=== PATIENT | male | born 1985 | race African-American/Black ===

== ENCOUNTER 2022-06-11 14:33 | Emergency (ER) | payer OTHER, SELFPAY ==
[2022-06-11 14:38] VITALS: BP 158/95; PULSE 100; RESP 19; TEMP 36.6; O2SAT 100; BMI 42.3
--- NOTE | 2022-06-11 18:10 | ED.BACK ---
HPI - Back Pain/Injury General Chief Complaint: Back Pain/Injury Stated Complaint: BACK PAIN Time Seen by Provider: 06/11/22 17:28 Source: patient Mode of arrival: ambulatory Limitations: no limitations History of Present Illness HPI Narrative: Patient presents emergency department for evaluation of diffuse lower back pain. Onset about 3-4 days ago. Denies any precipitating injury. Reports a history of similar pain in the past, but has not occurred for a few years. States that the pain will sometimes go away on its own with the use of ibuprofen. However that has not been the case this time around. Previously has needed to come to the emergency department to receive prescription for muscle relaxer and Percocet. He does report that he has trialed physical therapy in the past which only made his symptoms worse, has not had any prior MRI. He was following with a back specialist in approximately 2016 who recommended cortisone injections but he did not have this performed. Denies recent precipitating injury, fevers, chills, burning with micturition, urinary frequency/urgency/hesitancy, bladder or bowel dysfunction, numbness or tingling of the perineum or bilateral legs. Denies any recent surgical procedures, any known immune compromising conditions, personal history of cancer, or IV drug usage. MD elicited complaint: back pain Related Data Previous Rx's Medication Instructions Recorded cyclobenzaprine 10 mg tablet 10 mg PO TID PRN muscle spasm #10 06/11/22 tabs hydrocodone 5 mg-acetaminophen 325 1 tab PO Q8H PRN pain #7 tabs 06/11/22 mg tablet Allergies Allergy/AdvReac Type Severity Reaction Status Date / Time No Known Allergies Allergy Unverified 07/07/20 18:54 [No Known Allergies*] Review of Systems Review of Systems: Constitutional: No weight loss, fever, chills, weakness or fatigue. Skin: No rash or itching. Cardiovascular: No chest pain, chest pressure or chest discomfort. No palpitations or pedal edema. Respiratory: No shortness of breath, cough or sputum production. Gastrointestinal: No anorexia, nausea, vomiting or diarrhea. No abdominal pain or blood in stool. Genitourinary: No burning micturition. No urinary frequency or incontinence. Neurologic: No headache, dizziness, syncope, unilateral weakness, ataxia, numbness or tingling in the extremities. No change in bowel or bladder control. Musculoskeletal: + Back pain as noted in HPI. No joint pain or stiffness. Hematologic: No bleeding or bruising. Lymphatics: No enlarged lymph nodes. Psychiatric:No depression or anxiety. Endocrine: No polyuria or polydipsia. Yes all other systems are reviewed and are negative [facility] Past Medical History Attestation statement: The following information was validated with the patient. Source: old records reviewed Social History Social History Advance Directives: No Advance Directives Information Provided: Yes Physical Exam Vital Signs: Vital Signs: Last Vital Signs Temp 98 F 06/11/22 14:38 Pulse 100 06/11/22 14:38 Resp 19 06/11/22 14:38 BP 158/95 H 06/11/22 14:38 Pulse Ox 100 06/11/22 14:38 O2 Del Method 06/11/22 14:38 BMI result Body Mass Index 42.3 Vital signs have been reviewed as normal and appeared to be correct. Blood pressure normal.? Heart rate normal.? Respiration rate normal. Temperature normal.? Oxygen saturation normal. Appearance: Alert.?Oriented to person, place and time. No acute distress.?Normal affect. Eyes: Pupils equal, round and reactive to light.? ENT: Pharynx normal.?? Neck: Normal inspection.? Neck supple.?? CVS: Heart sounds normal. Normal heart rate and rhythm.? Pulses normal; bilateral radial pulses 2+, bilateral posterior tibial/dorsalis pedis pulses 2+.? Respiratory: No respiratory distress.? Lung sounds clear to auscultation bilaterally?? Abdomen: Soft and non-tender. Skin: Skin warm and dry.? Normal skin color Extremities: No lower extremity edema.? Back: + mild paraspinal muscular tenderness from lumbar region to coccyx. No CVA tenderness. No midline spinal tenderness, step-off's, or deformity. Full ROM intact in bilateral lower extremities. Straight leg test negative on right; Straight leg test negative on left. No rashes, lesions, areas of induration or fluctuance, or signs of infection noted. Course Course Course Narrative: Patient is a 36-year-old male with past medical history of low back pain presents to the emergency department today for 4 days of atraumatic lower back pain. Pain is most consistent with muscular pain, although cannot completely exclude herniated disc. On neurological exam there are no deficits. Not consistent with spinal fracture, spinal infection, epidural abscess, AAA, epidural abscess, or dissection. No high risk past medical history including incontinence, fever, immunosuppression, recent surgery or lumbar puncture, coagulopathy, significant trauma, recent unintentional weight loss, pulsatile mass, history of cancer, history of TB, history of IV drug use that would warrant MRI or CT. Not consistent with pyelonephritis, urinary tract infection, renal calculi, appendicitis, diverticulitis. On exam no concern for cauda equina syndrome. No imaging is currently indicated at this time. Plan for discharge home with new prescription for Flexeril, hydrocodone, discussed worrisome signs and symptoms return back to emergency, and follow-up with primary care provider, and patient agreed with plan. MDM - Back Pain/Injury Medical Records Attestation: I reviewed the patient's medical records. Discharge Plan Discharge Clinical Impression: Lumbar back pain Patient Disposition: Home, Self-Care Instructions: Acute Low Back Pain (ED) Additional Instructions: Be sure to rest, avoid excess activity or heavy lifting. Return to work note provided for tomorrow at your request. You can take ibuprofen 200 mg, 3 tablets (600mg) every 6-8 hours as needed for pain You have additionally been given a prescription for cyclobenzaprine this is a muscle relaxer, it may make you drowsy. You should not drive, operate machinery, or drink alcohol while taking this medication. Should you continue to have pain you may trial hydrocodone after. Please contact your primary care provider and arrange for a follow-up visit. Return to the emergency department any new or worsening symptoms or concerns Prescriptions: New cyclobenzaprine 10 mg tablet 10 mg PO TID PRN (Reason: muscle spasm) Qty: 10 0RF hydrocodone-acetaminophen 5-325 mg tablet 1 tab PO Q8H PRN (Reason: pain) Qty: 7 0RF Rx Instructions: Partial Fill upon patient request. Stand Alone Forms: Work/School Release
== END 2022-06-11 19:13 | disposition home or self-care (01) ==
PROVIDERS: Emergency Provider Emergency Medicine; PCP Internal Medicine
DX: M54.50 Low back pain, unspecified (principal)
CPT/HCPCS: 99281; 99283

== ENCOUNTER 2022-12-06 10:48 | Outpatient (REF) | payer OTHER, SELFPAY ==
[2022-12-06 13:52] LABS: MANUAL DIFF FLAG NO
[2022-12-06 14:02] LABS: Basophils Absolute Auto 0.1 X10*3/uL (0.0-0.2); Basophils Percent Auto 0.8 % (0-2); Eosinophils Absolute Auto 0.2 X10*3/uL (0.0-0.4); Eosinophils Percent Auto 2.1 % (0-4); Hematocrit 47.9 % (42.0-52.0); Hemoglobin 15.9 g/dl (14.0-18.0); Imm Gran Abs Auto 0.02 X10*3/uL (0.00-0.03); Imm Gran Pct Auto 0.2 % (0.0-0.4); Lymphocytes Absolute Auto 2.6 X10*3/uL (1.2-4.9); Lymphocytes Percent Auto 30.1 % (20-40); Mean Corpuscular HGB Conc 33.2 g/dl (31.0-36.0); Mean Corpuscular Hemoglobin 29.6 pg (27.0-33.0); Mean Platelet Volume 9.6 fL (9.4-12.4); Monocytes Absolute Auto 0.8 X10*3/uL (0.1-1.2); Monocytes Percent Auto 9.1 % (2-11); Neutrophils Percent Auto 57.7 % (45-73); Platelet Count 321 X10*3/uL (160-400); Red Blood Count 5.38 X10*6/uL (4.60-5.80); White Blood Count 8.7 X10*3/uL (4.8-10.8)
[2022-12-06 14:18] LABS: Alanine Aminotransferase 55 U/L (0-40); Albumin Level 4.8 g/dL (3.5-5.0); Alkaline Phosphatase 68 U/L (39-117); Anion Gap 16 (12-20); Aspartate Amino Transferase 34 U/L (5-37); Bilirubin Total 0.5 mg/dL (0.0-1.0); Blood Urea Nitrogen 11 mg/dL (9-16); Calcium 9.8 mg/dL (8.4-10.2); Carbon Dioxide 26 mmol/L (22-29); Chloride 105 mmol/L (96-108); Cholesterol 262 mg/dL; Estimated Glomerular Filt Rate > 60; Glucose Fasting 86 mg/dL (60-99); HDL Cholesterol 73 mg/dL; LDL Cholesterol Calculated 166 mg/dl; Potassium 4.3 mmol/L (3.3-5.1); Sodium 143 mmol/L (135-145); Total Protein 7.5 g/dL (6.5-8.0); Triglycerides 117 mg/dL
== END 2022-12-06 10:49 | disposition home or self-care (01) ==
LOC: HO.HMGCLDS 10:48
PROVIDERS: PCP Internal Medicine; Visit Provider Internal Medicine
DX: E66.01 Morbid (severe) obesity due to excess calories (principal); G89.29 Other chronic pain; M54.50 Low back pain, unspecified; R03.0 Elevated blood-pressure reading, without diagnosis of hypertension; Z76.89 Persons encountering health services in other specified circumstances
CPT/HCPCS: 36415; 80053; 80061; 84439; 84443; 85025

== ENCOUNTER 2022-12-20 14:37 | Outpatient (REF) | payer OTHER, SELFPAY ==
--- NOTE | ~2022-12-20 | US_ITS ---
EXAMINATION: US THYROID CLINICAL INFORMATION: Other specified abnormal findings of blood chemistry. COMPARISON: None TECHNIQUE: Linear transducer grayscale and color Doppler examination with attention to the region of the thyroid. FINDINGS: SIZE: Measurements of the thyroid lobes and nodules are given in sagittal, anteroposterior and transverse dimensions respectively. Right Thyroid Lobe: 5.0 x 2.0 x 1.4 cm, volume 7.4 mL. Parenchyma: The gland echotexture is homogeneous. Thyroid vascularity is normal. Left Thyroid Lobe: 5.4 x 2.2 x 1.3 cm, volume 8.2 mL. Parenchyma: The gland echotexture is homogeneous. Thyroid vascularity is normal. Isthmus: 0.42 cm in maximum AP dimension. No focal thyroid nodule is seen. NODES: No lymphadenopathy is seen in the tissue surrounding the thyroid gland. US/US thyroid IMPRESSION: Unremarkable-appearing thyroid without nodules. ACR TI-RADS RECOMMENDATION REFERENCE: Ultrasound-guided fine-needle aspiration, followup ultrasound, no further follow up. * TR1 (0 point) and TR2 (2 points): No FNA or follow up. * TR3 (3 points): FNA if more than or equal to 2.5 cm in maximum dimension, followup ultrasound in 1, 3 and 5 years if 1.5 to 2.4 cm in maximum dimension. * TR4 (4-6 points): FNA if more than or equal to 1.5 cm in maximum dimension, followup ultrasound in 1, 2, 3 and 5 years if 1 to 1.4 cm in maximum dimension. * TR5 (more than or equal to 7 points): FNA if more than or equal to 1 cm in maximum dimension, followup ultrasound every year for 5 years if 0.5 to 0.9 cm in maximum dimension. * TR3, TR4 or TR5 nodules that are below the size threshold for followup receive no follow up.
== END 2022-12-20 14:38 | disposition home or self-care (01) ==
LOC: HO.HMGCX 14:37
PROVIDERS: PCP Internal Medicine; Visit Provider Internal Medicine
DX: R79.89 Other specified abnormal findings of blood chemistry (principal)
CPT/HCPCS: 76536

== ENCOUNTER 2023-05-21 15:08 | Emergency (ER) | payer OTHER, SELFPAY ==
--- NOTE | ~2023-05-21 | XR_ITS ---
EXAMINATION: XR HIP, LEFT CLINICAL INFORMATION: Left hip pain, difficulty walking. COMPARISON: None available. TECHNIQUE: Two views of the left hip. FINDINGS: No fracture. Alignment is anatomic. Hip joint space is maintained. Soft tissues are unremarkable. XR/XR hip LT w PEL1V IMPRESSION: Unremarkable left hip.
[2023-05-21 15:49] VITALS: BP 163/102; PULSE 109; RESP 18; TEMP 36.7; O2SAT 93; BMI 43.1
--- NOTE | 2023-05-21 15:50 | ED.EXTPRO ---
HPI - Extremity Problem General Chief complaint: Extremity Problem Stated complaint: left leg pain Time Seen by Provider: 05/21/23 16:10 Source: patient and RN notes reviewed Mode of arrival: ambulatory Limitations: no limitations History of Present Illness HPI Narrative: This is a 37-year-old male, with a past medical history of chronic back pain, presenting to the emergency department with complaints of left hip pain x2 days. patient denies any recent trauma, heavy lifting, or falls. He states that while he was working around [employer] he suddenly felt left hip pain. He states that the pain has been worsening over the last 2 days. He states that the pain worsens with ambulation and with abduction. No urinary or bowel incontinence or retention. No saddle anesthesia. No other complaints or concerns at this time. MD Complaint: extremity pain Onset (ago): day(s) Radiation: none Relieving factors: nothing Exacerbating factors: nothing Associated symptoms: denies other symptoms Related Data Previous Rx's Medication Instructions Recorded ibuprofen 600 mg tablet 600 mg PO Q6H PRN pain #30 tabs 05/21/23 prednisone 20 mg tablet 40 mg PO DAILY 5 days #10 tabs 05/21/23 Allergies Allergy/AdvReac Type Severity Reaction Status Date / Time No Known Allergies Allergy Verified 12/12/22 14:54 [No Known Allergies*] Review of Systems Review of Systems: Yes all other systems are reviewed and are negative Constitutional: Constitutional: Reports as per [facility] Social History Social History Housing: Apartment Patient Tobacco Use Status: Current everyday Tobacco user Tobacco use type: Cigarette Cigarette Packs Per Day: 0.5 e-Cigarette/Vaping Use: Never Used Advance Directives: No Advance Directives Information Provided: No service: No Current occupational status: employed Cognitive needs: No Hearing needs: No Vision needs: No Physical Exam Vital Signs: Vital Signs: Last Vital Signs Temp 98.0 F 05/21/23 15:49 Pulse 106 H 05/21/23 18:35 Resp 18 05/21/23 18:35 BP 185/104 H 05/21/23 18:35 Pulse Ox 98 05/21/23 18:35 O2 Del Method Room Air 05/21/23 18:35 BMI result Body Mass Index 43.1 Const: General: cooperative, comfortable and no acute distress Orientation/consciousness: patient oriented x3 Limitations: no limitations HEENT: Head: Yes normal to inspection, Yes normocephalic and Yes atraumatic Ears: hearing grossly normal bilaterally General nose exam: Normal external nose present Face and sinus: Yes normal facial exam Mouth: Normal oral and palatal mucosa present, oropharynx normal and moist mucous membranes Throat: Yes posterior oropharynx normal Eyes: General: appearance normal, both eyes and all related structures Eyelids: Yes eyelids normal Conjunctivae: conjunctivae normal Sclerae: sclerae normal Pupils: Equal, round and reactive pupils present EOM: EOMs intact bilaterally Neck: Neck: Yes normal visual inspection, Yes full ROM and Yes no lymphadenopathy Lymphatic: no lymphadenopathy noted Chest: Chest palpation & inspection: normal inspection of the chest Resp: Effort & Inspection: normal respiratory effort and able to speak in complete sentences Auscultation: clear to auscultation bilaterally, no crackles, no rales, no rhonchi and no wheezes Cardio: Rate: regular rate Rhythm: regular rhythm Heart sounds: S1 normal heart sound present and S2 normal heart sound present GI: Other: Abdomen is soft, nontender, nondistended. Inspection: Yes normal to inspection Back/Spine/Pelvis: Other: TTP over the left SI joint and left hip. No overlying erythema, edema, ecchymosis noted. No step off. Ambulatory with steady gait. Skin: General skin exam: no rashes or lesions noted Trauma: no lacerations or abrasions Wounds: no wounds Neuro: General: patient oriented x3 and moves all extremities Cranial nerves: Yes Equal, round and reactive pupils present Extrem: General: Yes normal to inspection Right upper extremity: normal to inspection Left upper extremity: normal to inspection Right lower extremity: normal to inspection Left lower extremity: normal to inspection Course Course Course Narrative: RME - 37 yo obese male presents to the ER for evaluation of nontraumatic 10/10 left hip pain for the last 2 days, progressively worsening. Difficulty walking and sleeping. Also endorses some LBP without LE weakness - has some chronic left anterior thigh numbness. Plan: x-ray hip, treat pain & reassess Reevaluation(s) Reevaluation #1: Pt's symptoms improved significantly after toradol injection. Will d/c pt on steroids, NSAIDs. Advised follow-up with primary care physician regarding this visit. Given return precautions. Patient is stable for discharge. Medications Administered Discontinued Medications Generic Name Dose Route Start Last Admin Trade Name Freq PRN Reason Stop Dose Admin Ketorolac Tromethamine 30 mg 05/21/23 17:05 05/21/23 17:14 Ketorolac Tromethamine 30 Mg/Ml Vial IM 05/21/23 17:06 30 mg ONCE ONE Administration Medical Decision Making Medical Decision Making MDM Narrative: This is a 61-[id number]-[id number]-male presenting to the emergency department for evaluation of left hip pain, atraumatic. symptoms most consistent with MSK related pain. No back pain red flags on history of physical. Presentation not consistent with malignancy, fracture, cauda equina syndrome (no bowel or urinary incontinence/retention, no saddle anesthesia, no distal weakness), pylenophritis (afebrile, no CVAT, no urinary symptoms). On examination, patient with mild TTP over left SI joint and left hip. Pt is ambulatory with steady gait. Patellar reflexes 2+. Mildly hypertensive likely due to pain, will get xrays and medicate with toradol. Differential Diagnosis Differential Diagnoses: The differential diagnosis associated with the presentation includes Hip strain, fracture, dislocation, Back strain, sprain, spasm, sciatica, cauda equina syndrome - unlikely Radiology Impression Discussion of test interpretation with radiology: I have reviewed the radiologist's reading. Radiologist Impression: EXAMINATION: XR HIP, LEFT CLINICAL INFORMATION: Left hip pain, difficulty walking. COMPARISON: None available. TECHNIQUE: Two views of the left hip. FINDINGS: No fracture. Alignment is anatomic. Hip joint space is maintained. Soft tissues are unremarkable. XR/XR hip LT w PEL1V IMPRESSION: Unremarkable left hip. ? Dictated By: Lang Ramirez MD Discharge Plan Discharge Clinical Impression: Left hip pain Patient Disposition: Home, Self-Care Instructions: Hip Pain (ED) Additional Instructions: Your x-rays were unremarkable today. Gentle stretching, heat or ice, taking prescribed medications will help with his symptoms. If any new or worsening symptoms occur, including numbness or tingling to groin, bladder/bowel incontinence, please return for re-evaluation. Follow up with your primary care physician. Prescriptions: New prednisone 20 mg tablet 40 mg PO DAILY 5 Days Qty: 10 0RF ibuprofen 600 mg tablet 600 mg PO Q6H PRN (Reason: pain) Qty: 30 0RF Interventions: ED Discharge Assessment Last Done: 05/21/23 19:16 Discharge Date/Time: 05/21/23 19:16
[2023-05-21] MEDS: Ketorolac Tromethamine 30 MG/ML VIAL IM (17:14)
[2023-05-21 18:35] VITALS: BP 185/104; PULSE 106; RESP 18; O2SAT 98
== END 2023-05-21 19:16 | disposition home or self-care (01) ==
PROVIDERS: Emergency Provider Emergency Medicine; PCP Internal Medicine
DX: M25.552 Pain in left hip (principal); E78.9 Disorder of lipoprotein metabolism, unspecified; E66.01 Morbid (severe) obesity due to excess calories; Z68.41 Body mass index [BMI] 40.0-44.9, adult; F17.210 Nicotine dependence, cigarettes, uncomplicated
CPT/HCPCS: 73502; 96372; 99284; J1885

== ENCOUNTER 2024-02-08 09:26 | Emergency (ER) | payer SELFPAY ==
--- NOTE | ~2024-02-08 | XR_ITS ---
EXAMINATION: XR SHOULDER , LEFT CLINICAL INFORMATION: Pain, no injury. COMPARISON: None available at the time of this dictation. TECHNIQUE: AP external rotation, Grashey, scapular Y, and axillary views of the shoulder. Total of 4 views FINDINGS: BONES: There is no fracture or dislocation, no osteolytic or osteoblastic lesion. JOINTS: Glenohumeral joint is properly positioned. AC joint is unremarkable. SOFT TISSUE AND INCLUDED LUNG: Soft tissue calcification around humeral head suggesting calcific tendinosis. XR/XR shoulder LT min 2V IMPRESSION: 1. Soft tissue calcification around humeral head suggesting calcific tendinosis. 2. No fracture or dislocation.
[2024-02-08 09:40] VITALS: BP 154/98; PULSE 93; RESP 18; TEMP 36.7; O2SAT 97; BMI 42.3
--- NOTE | 2024-02-08 10:00 | ED.EXTPRO ---
HPI - Extremity Problem General Chief complaint: Extremity Injury, Upper Stated complaint: Left arm pain Time Seen by Provider: 02/08/24 09:58 Source: patient Mode of arrival: ambulatory Limitations: no limitations History of Present Illness HPI Narrative: 38 yo m with pmhx of lipid disorder, morbid obesity, LFT elevation presents with left shoulder pain X 2 weeks. Denies trauma to arm, states it has not improved with ibuprofen and was tried of the pain. Reports slight radiation to left side of neck. 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 Pain seems to be worsening by heavy lifting and above the head movments. Denies cp, shortness of breath, chills, fevers, nausea, vomiting, diarrhea, vision changes, fevers, chills, numbness, tingling Related Data Previous Rx's ?Medication ?Instructions ?Recorded ibuprofen 600 mg tablet 600 mg PO Q6H PRN pain #30 tabs 05/21/23 prednisone 20 mg tablet 40 mg (2 x 20 mg) PO DAILY 5 days 05/21/23 #10 tabs ketorolac 10 mg tablet 10 mg PO TID PRN pain 5 days #15 02/08/24 tabs Allergies Allergy/AdvReac Type Severity Reaction Status Date / Time No Known Allergies Allergy Verified 02/08/24 09:43 [No Known Allergies*] Review of Systems Review of Systems: Yes all other systems are reviewed and are negative PMFSH Past Medical History Attestation statement: The following information was validated with the patient. Source: old records reviewed and nursing notes reviewed Social History Social History Housing: Apartment Alcohol intake: current Patient Tobacco Use Status: Current everyday Tobacco user Tobacco use type: Cigarette Cigarette Packs Per Day: 0.5 Smoked in Last 30 Days: Yes e-Cigarette/Vaping Use: Never Used Substance Use Type: Marijuana Advance Directives: No service: No Current occupational status: employed Cognitive needs: No Hearing needs: No Vision needs: No Physical Exam Vital Signs: Vital Signs: Last Vital Signs Temp 98.1 F 02/08/24 10:44 Pulse 93 02/08/24 10:44 Resp 18 02/08/24 10:44 BP 154/98 H 02/08/24 10:44 Pulse Ox 97 02/08/24 10:44 O2 Del Method Room Air 02/08/24 10:44 BMI result Body Mass Index 42.3 vss Appearance: Alert.? Oriented X3.? No acute distress.? Head: Normocephalic, atraumatic, no step-offs or deformities Eyes: Pupils equal, round and reactive to light.? Neck: Normal inspection.? Neck supple.? CVS: Normal heart rate and rhythm.? Pulses normal b/l. Cap refill <2 seconds b/l. Respiratory: No respiratory distress.? Breath sounds normal.? Skin: Skin warm and dry.? Normal skin color.? Normal skin turgor.? Extremities: 5/5 strength to bilateral upper and lower extremities. Tenderness to palpation to l shoulder. Full ROM b/l, pain with ROM on l shoulder worse w/ overhead movements. No wrist drop. Normal sensation distally. 2+ radial pulses equal and b/l. Back: No midline tenderness, no C-spine tenderness, full range of motion. Neuro: Oriented X 3.? No motor deficit.? No sensory deficit. CN 2-12 intact Course Reevaluation(s) Reevaluation #1: X-ray showing soft tissue calcification around humeral head suggesting calcific tendinosis. I did educate patient is at this was the likely diagnosis. Advised him to follow-up with the orthopedic team. He was given Toradol here. Toradol sent to his pharmacy. Educated patient on diagnosis and treatment plan, answered all question, patient verbalizes understanding. At this time patient will be discharged home, advised to return with new or worsening symptoms. Educated on worrisome signs and symptoms and when to return. At this time I feel comfortable discharge home. Time: 11:37 Medications Administered Discontinued Medications Generic Name Dose Route Start Last Admin Trade Name Freq PRN Reason Stop Dose Admin Ketorolac Tromethamine 30 mg 02/08/24 10:07 02/08/24 10:40 Ketorolac Tromethamine 30 Mg/Ml Vial IM 02/08/24 10:08 30 mg ONCE ONE Administration Medical Decision Making Medical Decision Making [facility] Narrative: 38 yo m with pmhx of LFT elevation, lipid disorder presents with left shoulder pain X 2 weeks, came in because he got tired of pain. Denies trauma to area. Denies cp, shortness of breath, nausea, vomiting, diarrhea, fevers. chills, vision changes. PE benign.5/5 strength to bilateral upper and lower extremities. Tenderness to palpation to l shoulder. Full ROM b/l, pain with ROM on l shoulder worse w/ overhead movements. No wrist drop. Normal sensation distally. 2+ radial pulses equal and b/l. Hx and PE likely strain vs sprain vs rotator cuff injury vs bursitis vs tendonitis. Unlikely NV compromise, arterial occlusion, venous occlusion, threat to limb. I do not suspect fx or dislocation. Plan- imaging Differential Diagnosis Differential Diagnoses: The differential diagnosis associated with the presentation includes Hx and PE likely strain vs sprain vs rotator cuff injury vs bursitis vs tendonitis. Unlikely NV compromise, arterial occlusion, venous occlusion, threat to limb. Admission/Observation Consideration of admission/observation: Escalation of care including admission/observation considered unlikely Independent Interpretation I performed an independent interpretation of an: Plain X-Ray (XR/XR shoulder LT min 2V IMPRESSION: 1. Soft tissue calcification around humeral head suggesting calcific tendinosis. 2. No fracture or dislocation.) Radiology Impression Discussion of test interpretation with radiology: I have reviewed the radiologist's reading. Independent Historian Clinical information obtained from an independent historian. History obtained from or confirmed by: Spouse Prescription Management I considered prescription management with: Pain Medication Discharge Plan Discharge Clinical Impression: Left shoulder pain Patient Disposition: Home, Self-Care Instructions: Shoulder Pain (ED) Additional Instructions: Take your medications as prescribed. If you were prescribed antibiotics today, it is important that you take your medication to their entirety, do not skip any doses, do not finish them early. Follow-up with your primary care provider this week. Return to the emergency department with new or worsening symptoms. In case of emergency call 911 Follow up with orthopedic team within 1 week if needed. Prescriptions: New ketorolac 10 mg tablet 10 mg PO TID PRN (Reason: pain) 5 Days Qty: 15 0RF No Action prednisone 20 mg tablet 40 mg PO DAILY 5 Days Qty: 10 0RF ibuprofen 600 mg tablet 600 mg PO Q6H PRN (Reason: pain) Qty: 30 0RF [place] [facility] [place] [facility] [place] Group[place] - 3 days Shaka Stock MD [Primary Care Provider] - 1 week Stand Alone Forms: Work/School Release Interventions: ED Discharge Assessment Last Done: 02/08/24 10:44 Discharge Date/Time: 02/08/24 10:44 Print Language: Albanian
[2024-02-08] MEDS: Ketorolac Tromethamine 30 MG/ML VIAL IM (10:40)
[2024-02-08 10:44] VITALS: BP 154/98; PULSE 93; RESP 18; TEMP 36.7; O2SAT 97
== END 2024-02-08 10:44 | disposition home or self-care (01) ==
PROVIDERS: Emergency Provider Emergency Medicine; PCP Internal Medicine
DX: M25.512 Pain in left shoulder (principal); F17.200 Nicotine dependence, unspecified, uncomplicated
CPT/HCPCS: 73030; 96372; 99284; J1885

== ENCOUNTER 2024-09-19 14:36 | Emergency (ER) | payer SELFPAY ==
--- NOTE | ~2024-09-19 | XR_ITS ---
EXAMINATION: XR LUMBOSACRAL SPINE CLINICAL INFORMATION: Midline lower back pain. COMPARISON: Lumbar spine radiographs dated 04/08/2015. TECHNIQUE: Three views of the lumbosacral spine. FINDINGS: The vertebral bodies and posterior elements are normal. The disc spaces are preserved and the vertebral alignment is normal. The paraspinal soft tissues are normal. XR/XR lumbar spine 2-3V IMPRESSION: Unremarkable examination. Electronically signed by: Randy Nguyen MD 09/19/2024 03:45 PM [facility]
[2024-09-19 14:47] VITALS: BP 169/92; PULSE 102; RESP 20; TEMP 37.6; O2SAT 98; BMI 40.8
--- NOTE | 2024-09-19 14:50 | ED.BACK ---
HPI - Back Pain/Injury General Chief Complaint: Back Pain/Injury Stated Complaint: back pain Time Seen by Provider: 09/19/24 15:22 Source: patient Mode of arrival: ambulatory Limitations: no limitations History of Present Illness ED Provider: Denisa Robertson NP HPI Narrative: Patient is a 39-year-old male who presents emergency department for evaluation of acute on chronic lower back pain. Worsening of symptoms occurred 3 days ago and exacerbates with movement. He denies any known precipitating injury however he does engage in heavy lifting activity while at work. He has tried ibuprofen without any relief in his pain. He states that he has been seen here in this emergency department in the past, has been given prescription for muscle relaxer as well as Percocet and/or Vicodin, this is the only thing that has so far help and has flares of this pain. He has tried physical therapy in the past but he feels that this worsens his pain. He has seen a back specialist quite a few years ago in [place], reports that they recommended cortisone injections but he did not wish to have this performed. He has requested an MRI but could not get 1 approved by the insurance company. He has not followed up with a back specialist in quite some time. Denies recent precipitating injury, fevers, chills, burning with micturition, urinary frequency/urgency/hesitancy, bladder or bowel dysfunction, numbness or tingling of the perineum or bilateral legs. Denies any recent surgical procedures, any known immune compromising conditions, personal history of cancer, or IV drug usage. elicited complaint: back pain Related Data Previous Rx's ?Medication ?Instructions ?Recorded ibuprofen 600 mg tablet 600 mg PO Q6H PRN pain #30 tabs 05/21/23 prednisone 20 mg tablet 40 mg (2 x 20 mg) PO DAILY 5 days 05/21/23 #10 tabs ketorolac 10 mg tablet 10 mg PO TID PRN pain 5 days #15 02/08/24 tabs cyclobenzaprine 10 mg tablet 10 mg PO TID PRN muscle spasm #14 09/19/24 tabs prednisone 20 mg tablet 40 mg (2 x 20 mg) PO DAILY 5 days 09/19/24 #10 tabs Allergies Allergy/AdvReac Type Severity Reaction Status Date / Time No Known Allergies Allergy Verified 09/19/24 14:51 [No Known Allergies*] Review of Systems Review of Systems: Yes all other systems are reviewed and are negative [facility] Past Medical History Attestation statement: The following information was validated with the patient. Source: old records reviewed Social History Social History Housing: Apartment Alcohol intake: current Patient Tobacco Use Status: Current everyday Tobacco user Tobacco use type: Cigarette Cigarette Packs Per Day: 0.5 e-Cigarette/Vaping Use: Never Used Substance Use Type: Marijuana service: No Current occupational status: employed Cognitive needs: No Hearing needs: No Vision needs: No Physical Exam Vital Signs: Vital Signs: Last Vital Signs Temp 99.7 F 09/19/24 14:47 Pulse 102 H 09/19/24 14:47 Resp 20 09/19/24 14:47 BP 169/92 H 09/19/24 14:47 Pulse Ox 98 09/19/24 14:47 O2 Del Method Room Air 09/19/24 14:47 BMI result Body Mass Index 40.8 Appearance: Alert.?Oriented to person, place and time. No acute distress.?Normal affect. Eyes: Pupils equal, round and reactive to light.? ENT: Pharynx normal.?? Neck: Normal inspection.? Neck supple.?? CVS: Heart sounds normal. Normal heart rate and rhythm.? Pulses normal; bilateral radial pulses 2+, bilateral posterior tibial/dorsalis pedis pulses 2+.? Respiratory: No respiratory distress.? Lung sounds clear to auscultation bilaterally?? Abdomen: Soft and non-tender. Normoactive bowel sounds. No pulsatile mass.?? Skin: Skin warm and dry.? Normal skin color.? Normal skin turgor.?? Extremities: No lower extremity edema.? No calf ttp? Back: + moderate paraspinal muscular tenderness from lumbar region to coccyx palpable spasming, tenderness extends to the bilateral upper lateral hip.. No CVA tenderness. No midline spinal tenderness, step-off's, or deformity. Full ROM intact in bilateral lower extremities. Straight leg test negative on right; Straight leg test negative on left. No rashes, lesions, areas of induration or fluctuance, or signs of infection noted., Neuro: Moves all extremities spontaneously. 5/5 strength in hip extension/flexion, abduction, adduction. Sensation to light touch intact bilaterally. Patellar and Achilles reflex 2+ bilaterally. No ataxia, gait normal and steady.. No focal neuro deficits. Course Course Course Narrative: This is a Rapid Medical Examination (RME) performed by Marizol Stewart PA-C in triage. Full HPI, ROS, assessment and treatment plan per primary provider in the Main ED. 39 yo male here w/ acute on chronic low back pain x3 days. worse w/ movement. took motrin around 0600 this morning without relief. states this typically happens when he works for a long period of time. admits to regular heavy lifting at work. no blunt injury or trauma. no hx of spinal surgery or IVDU. denies saddle anesthesia, numbness /tingling / weakness of extremities, bowel or bladder incontinence or retention. + ttp along midline lumbar spine extending to left lumbar paraspinal muscles. sensation intact. Plan: xr, pain control Medical Decision Making Medical Decision Making MDM Narrative: Patient is a 39-year-old male who presents emergency department for evaluation of acute on chronic lower back pain as per HPI, exacerbation over the past 3 days without obvious precipitating injury. On examination he has notable paraspinal muscle tenderness that extends to the lateral upper hip region. XR was obtained and is without acute osseous abnormality, vertebral bodies are normal and disc spaces appear preserved with normal alignment. On neurological exam there are no deficits. No recent fevers, unintentional weight loss, history of IVDA, high-risk past medical history, immunosuppression, recent surgery or lumbar puncture to suggest spinal infection, epidural abscess, malignancy. Not consistent with AAA or dissection. No genitourinary symptoms, afebrile, no CVA tenderness, unlikely urinary tract infection, pyelonephritis, renal colic. No history of nephrolithiasis/ureteral calculi. No exam findings concerning for cauda equina syndrome. Given his ongoing reoccurrence of this lower back pain and no recent follow-up with specialist, I suggested that he reconsider evaluation/2nd opinion, provided with contact information for the spinal specialist associated with our hospital, Dr. Monzon. Plan for discharge home with prescription for cyclobenzaprine and burst therapy of prednisone, and follow-up with primary care provider, and patient agreed with plan. Differential Diagnosis Differential Diagnoses: The differential diagnosis associated with the presentation includes ( see narrative above) Admission/Observation Consideration of admission/observation: Escalation of care including admission/observation considered ( see narrative above) Independent Interpretation I performed an independent interpretation of an: Plain X-Ray (No acute fracture) Radiology Impression Discussion of test interpretation with radiology: I have reviewed the radiologist's reading. Radiologist Impression: XR/XR lumbar spine 2-3V IMPRESSION: Unremarkable examination. Independent Historian Clinical information obtained from an independent historian. History obtained from or confirmed by: Spouse External Record Review External record reviewed: Outpatient record Tests considered The following testing was considered but not selected: See narrative above, no indication for emergent MRI/CT Prescription Management I considered prescription management with: Pain Medication Discharge Plan Discharge Clinical Impression: Lumbago Qualifiers: Chronicity: chronic Back pain laterality: bilateral Sciatica presence: without sciatica Qualified Code(s): M54.50 - Low back pain, unspecified Patient Disposition: Home, Self-Care Instructions: Chronic Back Pain (DC) Additional Instructions: Take prednisone daily for 5 days with food to prevent stomach upset. Prescription for muscle relaxant was sent to your pharmacy. This medication may make you drowsy, you should not drive or drink alcohol, or work while taking this medication. As discussed, given the chronic nature of this reoccurring pain, I suggest that you reconsider follow-up/2nd opinion with a back specialist. I have provided contact information for the back specialist that is associated with our hospital, Dr. Monzon, however you do have the available option to follow-up or seek evaluation wherever you please. You may speak with your insurance provider regarding local specialist that are within network. You may return to emergency department any new or worsening symptoms or concerns. Prescriptions: New prednisone 20 mg tablet 40 mg PO DAILY 5 Days Qty: 10 0RF cyclobenzaprine 10 mg tablet 10 mg PO TID PRN (Reason: muscle spasm) Qty: 14 0RF No Action prednisone 20 mg tablet 40 mg PO DAILY 5 Days Qty: 10 0RF ibuprofen 600 mg tablet 600 mg PO Q6H PRN (Reason: pain) Qty: 30 0RF ketorolac 10 mg tablet 10 mg PO TID PRN (Reason: pain) 5 Days Qty: 15 0RF Referrals: Shaka Stock MD [Primary Care Provider] - Anuel Monzon MD, PhD [Physician] - Print Language: Latvian
[2024-09-19 16:12] VITALS: BP 169/92; PULSE 102; RESP 20; TEMP 37.6; O2SAT 98
== END 2024-09-19 16:13 | disposition home or self-care (01) ==
PROVIDERS: Emergency Provider Emergency Medicine; PCP Internal Medicine
DX: M54.50 Low back pain, unspecified (principal); F17.210 Nicotine dependence, cigarettes, uncomplicated; F12.90 Cannabis use, unspecified, uncomplicated
CPT/HCPCS: 72100; 99282; 99283

== ENCOUNTER 2025-07-15 14:49 | Emergency (ER) | payer MEDICAID, SELFPAY ==
--- NOTE | ~2025-07-15 | XR_ITS ---
EXAMINATION: XR HAND, RIGHT CLINICAL INFORMATION: pain s/p punch COMPARISON: None available. TECHNIQUE: PA, lateral, and oblique views of the right hand. FINDINGS: Diagonally oriented cortical disruption involving the distal diaphysis of the third metacarpal with extension into the metacarpophalangeal joint. There is 2.5 mm gap between the fragments. The phalanges are intact with normal alignment. The carpal bones are intact with normal alignment. Distal radius and ulna are intact. The first, second, fourth and fifth metacarpals are intact. XR/XR hand RT min 3V IMPRESSION: Acute likely intra-articular fracture distal third metacarpal with ulnar deviation. Electronically signed by: Jc Duckworth MD 07/15/2025 03:47 PM EDT
[2025-07-15 15:17] VITALS: BP 234/96; PULSE 114; RESP 18; TEMP 36.8; O2SAT 96; BMI 39.5
--- NOTE | 2025-07-15 15:18 | ED_ITS ---
HPI - Extremity Injury (Upper) General Chief Complaint: Extremity Injury, Upper Stated Complaint: R hand injury Time Seen by Provider: 07/15/25 17:35 Related Data Previous Rx's ?Medication ?Instructions ?Recorded ibuprofen 600 mg tablet 600 mg PO Q6H PRN pain #30 t abs 05/21/23 prednisone 20 mg tablet 40 mg (2 x 20 mg) PO DAILY 5 days 05/21/23 #10 tabs ketorolac 10 mg tablet 10 mg PO TID PRN pain 5 days #15 02/08/24 tabs cyclobenzaprine 10 mg tablet 10 mg PO TID PRN muscle s pasm #14 09/19/24 tabs prednisone 20 mg tablet 40 mg (2 x 20 mg) PO DAILY 5 days 09/19/24 #10 tabs amoxicillin 875 mg-potassium 1 tab PO BID #14 tabs clavulanate 125 mg tablet doxycycline hyclate 100 mg capsule 100 mg PO BID cough 7 days #14 caps 07/15/25 oxycodone 5 mg tablet 5 mg PO Q8H PRN pain #7 tabs 07/15/25 Allergies Allergy/AdvReac Type Severity Reaction Status Date / Time No Known Allergies (No Known Allergy Verified 07/15/25 15:21 Allergies*) [facility] Social History Social History Housing: Apartment Alcohol intake: current Alcohol intake frequency: holidays/special occasions only Patient Tobacco Use Status: Current everyday Tobacco user Tobacco use type: Cigarette Cigarette Packs Per Day: 0.5 Smoked in Last 30 Days: Yes e-Cigarette/Vaping Use: Never Used Substance Use Type: Marijuana Advance Directives: No Advance Directives Information Provided: No Do you have a plan to hurt others: No Plan service: No Current occupational status: employed Cognitive needs: No Hearing needs: No Vision needs: No Physical Exam Vital Signs: Vital Signs: Last Vital Signs Temp 98.1 F 07/15/25 20:12 Pulse 91 07/15/25 20:12 Resp 18 07/15/25 20:12 BP 157/97 H 07/15/25 20:12 Pulse Ox 98 07/15/25 20:12 O2 Del Method Room Air 07/15/25 20:12 BMI result Body Mass Index 39.5 Course Course Course Narrative: This is an RME: Additional HPI, ROS, PE not included below will be deferred to primary provider. RME assessment and note performed by: Monik Adams PA-C This is a 40-year-old male, with no medical problems, who presents emergency department complaints of right hand pain. He states that he punched the corner of a table, states that he was upset. Patient with small laceration likely needing suture repair. Unsure of last tetanus he is right-hand dominant Plan: X-rays Medications Administered Discontinued Medications Generic Name Dose Route Start Last Admin Trade Name Freq PRN Reason Stop Dose Admin Hydrocodone Bitart/Acetaminophen 1 tab 07/15/25 19:43 07/15/25 19:52 Hydrocodone Bit/Acetam 5/325 Tablet PO 07/15/25 19:44 1 tab ONCE ONE Administration Diphtheria/Tetanus/Acell Pertussis 0.5 ml 07/15/25 15:22 07/15/25 18:03 Diphth,Pertus(Acell),Tet Adult 0.5 Ml Syringe IM 07/15/25 15:23 0.5 ml .ONCE ONE Administration Hydromorphone HCl 0.5 mg 07/15/25 18:03 07/15/25 20:27 Hydromorphone Hcl 0.5 Mg/0.5 Ml Syringe IVPUSH 07/15/25 18:04 Not Given ONCE ONE Protocol Ampicillin Sodium/Sulbactam 100 mls @ 200 mls/hr 07/15/25 18:01 07/15/25 19:07 Sodium 3 gm/ Sodium Chloride IV 07/15/25 18:30 Infused ONCE ONE Infusion Doxycycline Hyclate 100 mg/ 250 mls @ 166.67 mls/hr 07/15/25 18:01 07/15/25 19:34 Sodium Chloride IV 07/15/25 19:30 166.67 mls/hr ONCE ONE Administration Sodium Chloride 1,000 mls @ 999 mls/hr 07/15/25 18:15 07/15/25 19:36 Ns IV 07/15/25 19:15 Infused .Q1H1M KELLY Infusion Medical Decision Making Medical Decision Making MDM Narrative: 40 years old status post punching a table suffering a open wound to the dorsum of the right hand near the 3rd MCP area. Swelling to the area. The incident happened yesterday. Patient has pain on movement of the MCP clear swelling to the area. Patient's x-ray of the hand showed a distal 3rd metacarpal fracture. Likely has an open fracture. Orthopedics was consulted. Started patient on antibiotic as per their advice. Does not want to admit patient but wants pa tient to be closely followed up. Patient is to see them tomorrow. Explained to patient potentially he needs surgery. Patient is currently in stable condition. Orthopedics suggested that we put on an ulnar gutter. I placed a splint and will discharge patient home. IV antibiotics given as per the advice of orthopedics. Differential Diagnosis Differential Diagnoses: The differential diagnosis associated with the presentation includes Admission/Observation Consideration of admission/observation: Escalation of care including admission/observation considered Procedures Orthopedic Splinting/Casting right forearm: Side: right Upper Extremity Injury Location: hand Upper Extremity Immobilizer: ulnar gutter Additional Comments: Post splinting neurovascularly intact Discharge Plan Discharge Clinical Impression: Open fracture of hand Patient Disposition: Home, Self-Care Instructions: Hand Fracture (ED) Additional Instructions: You have an open fracture. Please follow-up very closely with orthopedics tomorrow. You will need surgery. Please take your antibiotics. 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 Prescriptions: New doxycycline hyclate 100 mg capsule 100 mg PO BID 7 Days Qty: 14 0RF amoxicillin-pot clavulanate 875-125 mg tablet 1 tab PO BID Qty: 14 0RF oxycodone 5 mg tablet 5 mg PO Q8H PRN (Reason: pain) Qty: 7 0RF Rx Instructions: Partial Fill upon patient request. No Action prednisone 20 mg tablet 40 mg PO DAILY 5 Days Qty: 10 0RF cyclobenzaprine 10 mg tablet 10 mg PO TID PRN (Reason: muscle spasm) Qty: 14 0RF prednisone 20 mg tablet 40 mg PO DAILY 5 Days Qty: 10 0RF ibuprofen 600 mg tablet 600 mg PO Q6H PRN (Reason: pain) Qty: 30 0RF ketorolac 10 mg tablet 10 mg PO TID PRN (Reason: pain) 5 Days Qty: 15 0RF Referrals: Tony De Los Santos MD [Physician, Orthopedics] - 1 day Referral Note: Open fracture knee close follow-up. Stand Alone Forms: Work/School Release Print Language: Sierra Leonean
[2025-07-15] MEDS: Diphth,Pertus(ACell),Tet Adult 0.5 ML SYRINGE IM (18:03)
[2025-07-15 18:39] VITALS: BP 140/87; PULSE 94; RESP 18; O2SAT 98
[2025-07-15] MEDS: HYDROcodone Bit/Acetam 5/325 TABLET 1 TAB PO (19:52)
[2025-07-15 20:12] VITALS: BP 157/97; PULSE 91; RESP 18; TEMP 36.7; O2SAT 98
[2025-07-15 21:20] VITALS: BP 157/97; PULSE 91; RESP 18; TEMP 36.7; O2SAT 98
== END 2025-07-15 21:20 | disposition home or self-care (01) ==
PROVIDERS: Emergency Provider Emergency Medicine Emergency Medical Services; PCP Internal Medicine
DX: S62.91XA Unspecified fracture of right hand, initial encounter for closed fracture (principal); S61.411A Laceration without foreign body of right hand, initial encounter; R11.0 Nausea; F17.210 Nicotine dependence, cigarettes, uncomplicated; X58.XXXA Exposure to other specified factors, initial encounter; Y93.9 Activity, unspecified; Y92.9 Unspecified place or not applicable; Y99.8 Other external cause status; Z23 Encounter for immunization
CPT/HCPCS: 29125; 73130; 90471; 90715; 96361; 96365; 96375; 99284; J0295; J1271

== ENCOUNTER → 2025-07-15 15:22 | Outpatient (BNV) | payer MEDICAID, SELFPAY | PROVIDERS: PCP Internal Medicine; Visit Provider Radiology Diagnostic Radiology | DX: M79.641 Pain in right hand (principal) | CPT/HCPCS: 73130 ==

== ENCOUNTER 2025-07-16 09:48 | Outpatient (REF) | payer SELFPAY ==
--- NOTE | ~2025-07-16 | XR_ITS ---
EXAMINATION: XR HAND, RIGHT CLINICAL INFORMATION: M79.641 - Pain in right hand ; third metacarpal fracture COMPARISON: 10/25/2024. TECHNIQUE: PA, lateral, and oblique views of the right hand. FINDINGS: Redemonstration of an oblique fracture of the distal third metacarpal with mild medial displacement. Alignment of the fracture is stable and unchanged from the prior exam. Fracture line extends intra-articularly into the MCP joint. No gross bridging bony callus or healing at this time. Remainder of the bony structures of the hand appear intact. There is normal alignment. Joint spaces are preserved. There is persistent dorsal soft tissue swelling of the hand. XR/XR hand RT min 3V IMPRESSION: No significant interval change in and oblique intra-articular distal third metacarpal fracture. Electronically signed by: Austin Bee MD 07/16/2025 10:20 AM EDT
== END 2025-07-16 09:49 | disposition home or self-care (01) ==
LOC: HO.HOSX 09:48
PROVIDERS: PCP Internal Medicine
DX: S62.302B Unspecified fracture of third metacarpal bone, right hand, initial encounter for open fracture (principal); Z79.891 Long term (current) use of opiate analgesic; Z79.2 Long term (current) use of antibiotics; X58.XXXA Exposure to other specified factors, initial encounter
CPT/HCPCS: 29125; 73130; 99212

== ENCOUNTER 2025-07-16 09:48 | Outpatient (AMB) | payer MEDICAID, SELFPAY ==
[2025-07-16 10:14] VITALS: BMI 39.5
--- NOTE | 2025-07-16 10:14 | MHC.OFFVIS ---
Vital Signs 07/16/25 10:14 Height 5 ft 7 in Weight 252 lb BMI 39.5 Intake Visit Reasons: ED f/u for R 3rd MC open fx Intake Note: Octavio is a 40 year old right hand dominant male, new patient, who presents today for a Fracture Care Visit status post Right 3rd Metacarpal Fracture, DOI: 07/14/25. Patient reports he punched a table while at home, immediately feeling pain on his knuckle. Today he complains of pain and swelling. He denies numbness or tingling. He denies previous injuries or fractures to the right hand. At [facility] he was prescribed Augmentin, Doxycycline, and Oxycodone but he has not been table to pick this up. Patient is wondering if we could send these to our [facility] pharmacy so they can be picked up while waiting on the billing deparment. Allergies No Known Allergies (No Known Allergies*) Allergy (Verified 07/16/25 10:20) [facility] ED f/u for R 3rd MC open fx: Details: Octavio is a 40 year old right hand dominant male, new patient, who presents today for a Fracture Care Visit status post Right 3rd Metacarpal Fracture, DOI: 07/14/25. Patient reports he punched a table while at home, immediately feeling pain on his knuckle. Today he complains of pain and swelling. He denies numbness or tingling. He denies previous injuries or fractures to the right hand. At [facility] he was prescribed Augmentin, Doxycycline, and Oxycodone but he has not been table to pick this up. Patient is wondering if we could send these to our [facility] pharmacy so they can be picked up while waiting on the billing deparment. [facility] Social History (Updated 07/16/25 @ 10:23 by KISHORE Pino) Housing: Apartment Alcohol intake: current Alcohol intake frequency: a few times a week Patient Tobacco Use Status: Current everyday Tobacco user Tobacco use type: Cigarette Cigarette Packs Per Day: 0.5 e-Cigarette/Vaping Use: Never Used Substance Use Type: Marijuana service: No Current occupational status: employed Current occupation: [employer] Cognitive needs: No Hearing needs: No Vision needs: No Review of Systems Const All systems reviewed & are unremarkable except as noted in HPI and below Physical Exam Vital Signs: BMI result Body Mass Index 39.5 Extrem Other: Patient is alert, oriented, and in no acute distress. Neuro: Normal sensation of the tips of all digits of the right hand at this time Vascular: Cap refill brisk Pain: Right 3rd metacarpal and areas surrounding wound is tender to palpation Skin: Wound noted over the right 3rd metacarpal head, slight ooze of blood noted No evidence of purulence Some slight redness thus around the wound site Psych: Appears grossly normal Affect normal Attitude cooperative Office Procedures Casting/Splints [id number] Splint Application Procedure code (CPT) selection complete Results Reviewed Results Reviewed: X-rays obtained in the office today and independently reviewed by me, Johan Hale PA-C, demonstrate displaced right 3rd metacarpal head fracture with intra-articular split. Assessment & Plan Assessment & Plan (1) Open fracture of third metacarpal bone of right hand: Code(s): S62.302B - Unspecified fracture of third metacarpal bone, right hand, initial encounter for open fracture Category: Medical Plan 1. Open fracture of right 3rd metacarpal head Date of injury 07/14/2025 I educated the patient about the condition. I discussed both operative and nonoperative treatment options. The patient would like to proceed with surgery. The risks and benefits of operative treatment were discussed with the patient and the patient wishes to proceed with surgery. These risks include, but are not limited to, risk of damage to blood vessels, nerves, tendons, infection, recurrence, incomplete relief of preoperative symptoms, persistent pain, possible need for further surgery, and the risks associated with regional blocks and/or anesthesia. Plan is to take the patient to the operating room at some point on 07/19/2025 for the following procedures: 1. Right 3rd metacarpal I and D and ORIF under general anesthesia All of the preoperative paperwork including the consent was discussed today. All of the patient's questions were answered in the clinic today. The patient understands that they will be in contact with our certified surgical tech/first assistant to discuss scheduling their procedure. Patient denies diabetes, blood thinners, asthma, heart issues, lung issues, kidney issues, or current smoking. NPO at midnight on Saturday Continue antibiotics Keep hand and wrist and splint, keep splint clean, dry, intact Orders: Orders XR hand RT min 3V Today M79.641 - Pain in right hand Medications: New doxycycline hyclate dental prophylaxis-take 1 tab 1hr prior to dental exam 100 mg PO BID 14 tabs 0RF 7 days amoxicillin-pot clavulanate 875-125 mg 1 tab PO BID 14 tabs 0RF 7 days Discontinued amoxicillin-pot clavulanate 875-125 mg Discontinued Reason: Ancillary Entered New Order 1 tab PO BID 14 tabs 0RF doxycycline hyclate Discontinued Reason: Ancillary Entered New Order 100 mg PO BID 7 days 14 caps 0RF cough Coding Level of Care Code New Pt Level 4 (26027) Diagnoses Open fracture of third metacarpal bone of right hand S62.302B CPT Codes Splint - CPT: 70847-[id number] Splint Application ([id number])
== END 2025-07-16 11:17 | disposition home or self-care (01) ==
LOC: HO.HOS 09:49
PROVIDERS: PCP Internal Medicine
DX: S62.302B Unspecified fracture of third metacarpal bone, right hand, initial encounter for open fracture (principal)
CPT/HCPCS: 29125; 99204

== ENCOUNTER → 2025-07-16 10:07 | Outpatient (BNV) | payer MEDICAID, SELFPAY | PROVIDERS: PCP Internal Medicine; Visit Provider Radiology Diagnostic Radiology | DX: M79.641 Pain in right hand (principal) | CPT/HCPCS: 73130 ==

== ENCOUNTER 2025-07-19 08:30 | Day surgery (SDC) | payer MEDICAID, SELFPAY ==
--- NOTE | 2025-07-16 12:23 | HO.ANESPROP2 ---
Documented by User: Kathia Parra NP 07/16/25 12:23 HPI - Anesthesia Eval Consult details Narrative: 40yo M for Right 3rd Metacarpal ORIF and I&D [facility] Active Problems Active Problems: All Active Problems LFT elevation (Acute) Lipid disorder (Acute) Low TSH level (Acute) Paresthesia of left leg (Acute) Foot pain, bilateral (Acute) Chronic lumbar pain (Acute) Morbid obesity due to excess calories (Acute) Elevated blood pressure reading (Acute) Establishing care with new doctor, encounter for (Acute) Surgical History Surgical History (Updated 07/19/25 @ 08:40 by Milagro Rust RN) H/O wisdom tooth extraction Social History Social History (Updated 07/16/25 @ 10:23 by KISHORE Pino) Housing: Apartment Alcohol intake: current Alcohol intake frequency: a few times a week Patient Tobacco Use Status: Current everyday Tobacco user Tobacco use type: Cigarette Cigarette Packs Per Day: 0.5 Cigarettes Per Day: 10 e-Cigarette/Vaping Use: Never Used Use of substances other than those prescribed or required for medical reasons: Yes Substance Use Type: Marijuana Substance Use Type Other:: occasionally Are you DNR?: No Advance Directives: No Advance Directives Information Provided: Yes Poor oral hygiene: No service: No Current occupational status: employed Current occupation: [employer] Cognitive needs: No Hearing needs: No Vision needs: No Meds Allergies Allergy/AdvReac Type Severity Reaction Status Date / Time No Known Allergies (No Known Allergy Verified 07/16/25 10:20 Allergies*) Assessment and Plan Assessment Anesthesia Assessment: Chart Reviewed Documented by User: Margarita Gonzalez MD 07/19/25 10:36 PMF Family History Family history of problems with anesthesia: No Surgical History Surgical History (Updated 07/19/25 @ 08:40 by Milagro Rust RN) H/O wisdom tooth extraction History of Problems with Anesthesia: No Social History Social History (Updated 07/16/25 @ 10:23 by KISHORE Pino) Housing: Apartment Alcohol intake: current Alcohol intake frequency: a few times a week Patient Tobacco Use Status: Current everyday Tobacco user Tobacco use type: Cigarette Cigarette Packs Per Day: 0.5 Cigarettes Per Day: 10 e-Cigarette/Vaping Use: Never Used Use of substances other than those prescribed or required for medical reasons: Yes Substance Use Type: Marijuana Substance Use Type Other:: occasionally Are you DNR?: No Advance Directives: No Advance Directives Information Provided: Yes Poor oral hygiene: No service: No Current occupational status: employed Current occupation: [employer] Cognitive needs: No Hearing needs: No Vision needs: No Meds Allergies Allergy/AdvReac Type Severity Reaction Status Date / Time No Known Allergies (No Known Allergy Verified 07/16/25 10:20 Allergies*) Exam Airway Mallampati Class: II TM Dist: >3cm Neck ROM: Full Heart: rrr Lungs: cta Assessment and Plan Assessment Anesthesia Assessment: Anesthesia Plan Discussed Final Anesthetic Review Family History of Problems with Anesthesia: No History of Problems with Anesthesia: No NPO: Yes ASA Class: II Final Preanesthetic Review: No Changes in Pt Med Stat, Meds/Allgs Chart Reviewed and Consent Obtained/Reviewed Patient Risk: Low Procedure Risk: Low Anesthetic Plan Anesthetic Plan: GA Disposition: Standard PACU
[2025-07-19] VITALS (9 sets, daily range): BP systolic 151–187; BP diastolic 93–109; PULSE 88–95; RESP 11–16; TEMP 36.1–36.8; O2SAT 96–98; BMI 39.6
--- NOTE | ~2025-07-19 | FL_ITS ---
EXAMINATION: FL GUIDANCE ONLY HISTORY: ORIF 3rd metacarpal COMPARISON: Comparison is made with the prior examination dated 07/16/2025. TECHNIQUE: Fluoroscopy time: 8.56 seconds. Cumulative Dose: 3.4921 mGy. DAP: 0.2110 Gym2 Images: 12. FINDINGS: Fluoroscopic spot films of the right hand demonstrate internal fixation of the previously seen fracture of the 3rd metacarpal head with 2 K wires. FL/FL guidance in OR IMPRESSION: Fluoroscopy during procedure. Please see procedure report for additional information. Electronically signed by: Tera Crook MD 07/19/2025 01:33 PM EDT
[2025-07-19] MEDS: Lactated Ringers 1,000 ML 100 ML IVCONT (09:15)
--- NOTE | 2025-07-19 10:34 | MHC.SHP ---
Pre-Procedural Eval Section A - 24 Hr Update-Section A only Date of Service: 07/19/25 The patient is an INPATIENT: No Changes since office visit: No Cold of Flu in the past 2 weeks, No New Medical Problems, No Changes in Medication and No Patient answered all questions The patient has been examined within 24 hours of the surgical procedure. The History & Physical has been completed within 30 days and I have reviewed it.: Yes Section B - Complete if H&P > 30 days Chief Complaint: Unspecified fracture of third metacarpal bone, Allergies: Allergies Allergy/AdvReac Type Severity Reaction Status Date / Time No Known Allergies (No Known Allergy Verified 07/16/25 10:20 Allergies*) Plan Diagnosis/Plan: Unchanged I have reviewed the history and physical and performed a pertinent physical examination on my patient. No changes have occurred unless specified. Time Spent With Patient Time: Total time managing care of this patient today ____ minutes.
--- NOTE | 2025-07-19 10:34 | W.PM.OPN ---
Operative Note Operative Note Date of Service: 07/19/25 Narrative: Operative Note Narrative: Preop diagnosis: 1. Open right 3rd Metacarpal head fracture Postop diagnosis: 1. Open right 3rd metacarpal head fracture 2. Right middle finger MCP joint laceration of radial sagittal band 3. Right middle finger open MCP joint Procedure: 1. Right 3rd Metacarpal head fracture open reduction internal fixation 2. I and D of open fracture and open MCP joint 3. Right 3rd MCP joint repair of radial sagittal band Surgeon: Shey Black MD Hand Ironer: None Anesthesia: General Anesthesia Findings: Metacarpal fracture Implants: 0.054 K-wires x2 Tourniquet time: 57 minutes EBL: Minimal Specimen: None Drains: None Complications: None Disposition: Brought to the recovery room in stable condition Plan: Follow-up in 10-14 days for a wound check, postop radiographs and for placement in a short-arm cast or splint Anticipate K-wire removal in 4 weeks based on interval bony healing Educate the patient that full fracture healing anticipated in approximately 8-12 weeks. Indications: The patient is 40 years old with an open right 3rd metacarpal head fracture, intra-articular . The risks and benefits of operative treatment, including but not limited to risk of damage to blood vessels, nerves, tendons, infection, recurrence, delayed or nonunion of fracture, persistent pain or numbness, incomplete resolution of preoperative symptoms, or need for further surgery were discussed with the patient and they wished to proceed with surgery. Procedure: Once consent was obtained patient was brought back to the operating suite and placed in the operating table in a supine position. . Perioperative antibiotics and general anesthesia was administered by the anesthesia team. A tourniquet was applied to the proximal aspect of the right upper extremity and the limb was prepped and draped in a standard surgical fashion. The limb was elevated and exsanguinated with an Esmarch bandage the tourniquet inflated for a total tourniquet time of 57 minutes. The FluoroScan was used during the case to assist with our fracture reduction and placement of all implants. The patient had an open wound over the dorsal aspect of his right 3rd MCP joint. I made a 4 cm longitudinal incision over the dorsal aspect of the right 3rd metacarpal head including the wound centered on the dorsal aspect of the 3rd metacarpal head. I then dissected down to the level of the extensor tendon. The extensor tendon was noted to be intact but displaced slightly ulnarly with a laceration through about 90% of the radial sagittal band and capsule. He does had both an open MCP joint and an open fracture. This was an oblique fracture through the distal radial articular surface of the 3rd metacarpal extending proximally to the ulnar cortex of the shaft. I 1st began with an I&D of the 3rd MCP joint and of the 3rd metacarpal fracture. This was an open fracture. I excised some hematoma from the fracture site using both tenotomy scissors and a small rongeur. A curette was also used. The fractures and copiously irrigated with normal saline using an Angiocath and a 10 mL syringe. This was also used to irrigate out the hematoma from the 3rd MCP joint. The wound was generally clean, and there was no purulence were debris.. An open reduction was performed on the patient's right 3rd metacarpal head fracture, which was intra-articular in extending from the radial articular surface proximally to the ulnar cortex of the shaft. .. I placed a 0.054 K-wire retrograde through the ulnar neck of the 3rd metacarpal extending proximally and radially across the fracture site to the volar radial cortex.. A 2nd 0.054 K-wire was placed similarly through the ulnar neck of the 3rd metacarpal extending across the fracture to the radial volar cortex. I was satisfied with our fracture alignment and placement of both implants. I applied some longitudinal load across the fracture and did not see any displacement of the fracture on fluoroscopic images. Fracture alignment was assessed for both angular and rotational malalignment. Once satisfied with our fracture reduction and implant placement, the K-wires were bent and cut short and pin caps applied. Final fluoroscopic images were then obtained. The wound was again irrigated with normal saline. I then repaired the radial sagittal band using some 4-0 FiberWire. The wounds were copiously irrigated with normal saline. The skin edges were reapproximated using some 5 0 Prolene suture. The wound was infiltrated with some 1% lidocaine with epinephrine for postop pain control. A Sterile dressing and volar sash clamp operator splint extending to the tips of all of the fingers was applied. The patient appears to have tolerated the procedure well and with no complications. All digits were well vascularized at the conclusion of the case.
[2025-07-19] MEDS: oxyCODONE HCl Immed Release 5 MG TABLET PO (13:10)
--- NOTE | 2025-07-19 15:39 | PHA.MEDREC ---
Addendum entered by Ajay Gillespie PharmD 07/19/25 15:47: reviewed Original Note: Pharmacy Consult ? Medication Reconciliation Pharmacy has reviewed the medication reconciliation done by nursing.
== END 2025-07-19 15:04 | disposition home or self-care (01) ==
PROVIDERS: PCP Internal Medicine; Visit Provider Orthopaedic Surgery
PROC: (CPT 26615; principal; 2025-07-19 10:00)
DX: S62.392B Other fracture of third metacarpal bone, right hand, initial encounter for open fracture (principal); S66.312A Strain of extensor muscle, fascia and tendon of right middle finger at wrist and hand level, initial encounter; W22.09XA Striking against other stationary object, initial encounter; Y93.9 Activity, unspecified; Y92.009 Unspecified place in unspecified non-institutional (private) residence as the place of occurrence of the external cause; Y99.9 Unspecified external cause status; F17.210 Nicotine dependence, cigarettes, uncomplicated
CPT/HCPCS: 26615; 26437; 11010; J0131; J0690; J1100; J1596; J2003; J2004; J2250; J2405; J2704; J3010

== ENCOUNTER → 2025-07-19 08:30 | Outpatient (BNV) | payer MEDICAID, SELFPAY | PROVIDERS: PCP Internal Medicine; Visit Provider Orthopaedic Surgery | DX: S62.302B Unspecified fracture of third metacarpal bone, right hand, initial encounter for open fracture (principal); S66.302A Unspecified injury of extensor muscle, fascia and tendon of right middle finger at wrist and hand level, initial encounter | CPT/HCPCS: 11012; 26437; 26615 ==

== ENCOUNTER 2025-07-27 11:03 | Outpatient (AMB) | payer MEDICAID, SELFPAY ==
--- NOTE | 2025-07-27 11:13 | A.OFFVIS_ITS ---
Intake Visit Reasons: PO RT 3rd MC I&D/ORIF 07/19/25 AR Intake Note: Octavio 40 yr old right hand dominant male presents today for his post op visit for his right hand 3rd MC I&D/ ORIF done with Dr. Black on 07/19/25. Dressing removed in office. Allergies No Known Allergies (No Known Allergies*) Allergy (Verified 07/27/25 11:18) HPI HPI PO RT 3rd MC I&D/ORIF 07/19/25 AR: Details: Octavio is a 40 year old right hand dominant man who presents S/P right 3rd metacarpal ORIF, I&D of fracture & MCP joint laceration, and MCP joint radial sagittal band repair, DOS: 07/19/25. He punched a table at home, DOI: 07/14/25. He says he is doing well overall, with some pain as expected. He has been wearing his splint. He works at [employer] and had questions about his RTW timeline. COUNT INCLUDES THE [facility] Surgical History H/O wisdom tooth extraction Social History Housing: Apartment Alcohol intake: current Alcohol intake frequency: a few times a week Patient Tobacco Use Status: Current everyday Tobacco user Tobacco use type: Cigarette Cigarette Packs Per Day: 0.5 Cigarettes Per Day: 10 e-Cigarette/Vaping Use: Never Used Substance Use Type: Marijuana service: No Current occupational status: employed Current occupation: [email or web address] Cognitive needs: No Hearing needs: No Vision needs: No Review of Systems Const All systems reviewed & are unremarkable except as noted in HPI and below Physical Exam Const General: no acute distress and alert Orientation/consciousness: patient oriented x3 Neuro General: patient oriented x3 Extrem Other: The patient was alert oriented and in no acute distress The incision is healing well with no erythema drainage or evidence of infection. He is very stiff at the MCP & PIP joints We worked on gentle ROM exercises of his index & ring fingers, while in his spl int Sensation is intact Cap refill is brisk Psych Appearance: grossly normal Affect: normal affect Attitude: cooperative Assessment & Plan Assessment & Plan (1) Open fracture of third metacarpal bone of right hand: Code(s): S62.302B - Unspecified fracture of third metacarpal bone, right hand, initial encounter for open fracture Category: Medical (2) Laceration of right middle finger: Comment: Radial sagittal bad & MCP joint Code(s): S61.212A - Laceration without foreign body of right middle finger without damage to nail, initial encounter Category: Medical Plan Assessment & Plan: 1. Right 3rd metacarpal head fracture, open 2. Right middle finger MCP joint laceration of radial sagittal band S/P ORIF, I&D x2, & radial sagittal band repair DOS: 07/19/25 DOI: 07/14/25 The patient appears to be doing well post-operatively I educated him about the post-operative course He is here for an early post-op appointment. He was placed back into his post-op splint until his next appointment I explained the signs and symptoms of infection, if the patient develops any new or worsening erythema, drainage, pain, or warmth they should contact the clinic or attend the ED. I discussed activity modifications, he is to lift nothing heavier than a cellphone for the next 5 weeks. 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 He was given a note to remain out of work for the next 4 weeks Follow up next week as scheduled for a wound check & suture removal. X-rays, 3V R hand, OOP. Anticipate placement in finger spica splint, middle ring & small, allowing for PIP joint ROM. Anticipate early OT referral. Anticipate K-wire removal at between 4 and 5 week postop Scribed for Shey Black MD by Finn Madrid, medical office coordinator, on 07/27/25 at 11:20 AM, EST. Orders: Orders XR hand RT min 3V Today M79.641 - Pain in right hand Coding Level of Care Code Global (43444) Diagnoses Open fracture of third metacarpal bone of right hand S62.302B Laceration of right middle finger S61.212A
== END 2025-07-27 11:50 | disposition home or self-care (01) ==
LOC: HO.HOS 11:04
PROVIDERS: PCP Internal Medicine; Visit Provider Orthopaedic Surgery
DX: S62.302B Unspecified fracture of third metacarpal bone, right hand, initial encounter for open fracture (principal); S61.212A Laceration without foreign body of right middle finger without damage to nail, initial encounter
CPT/HCPCS: 99024

== ENCOUNTER → 2025-07-27 11:05 | Outpatient (BNV) | payer MEDICAID, SELFPAY | PROVIDERS: Visit Provider Radiology Diagnostic Radiology | DX: S62.392A Other fracture of third metacarpal bone, right hand, initial encounter for closed fracture (principal) | CPT/HCPCS: 73130 ==

== ENCOUNTER 2025-07-27 11:18 | Outpatient (REF) | payer MEDICAID, SELFPAY ==
--- NOTE | ~2025-07-27 | XR_ITS ---
EXAMINATION: XR HAND, RIGHT CLINICAL INFORMATION: M79.641 - Pain in right hand COMPARISON: 07/16/2025, 07/15/2025. TECHNIQUE: PA, lateral, and oblique views of the right hand. FINDINGS: There has been interval dual K wire fixation of an oblique intra-articular fracture of the distal third metacarpal with mild medial displacement. Alignment of the fracture is near-anatomic and unchanged from prior exams. Fracture lines are still well defined and minimally sclerotic. No gross bony bridging bony callus is evident. Remainder the bony structures of the hand appear intact. There is normal alignment. Joint spaces are preserved. There is mildly improving dorsal soft tissue swelling. XR/XR hand RT min 3V IMPRESSION: Interval dual K wire fixation of the oblique intra-articular fracture of the distal third metacarpal. No change in near-anatomic alignment. Electronically signed by: Austin Bee MD 07/27/2025 11:20 AM EDT
== END 2025-07-27 11:19 | disposition home or self-care (01) ==
LOC: HO.HOSX 11:18
PROVIDERS: Visit Provider Orthopaedic Surgery
DX: Z47.89 Encounter for other orthopedic aftercare (principal); S61.212A Laceration without foreign body of right middle finger without damage to nail, initial encounter; X58.XXXA Exposure to other specified factors, initial encounter
CPT/HCPCS: 73130; 99212

== ENCOUNTER 2025-08-03 08:31 | Outpatient (REF) | payer MEDICAID, SELFPAY ==
--- NOTE | ~2025-08-03 | XR_ITS ---
EXAMINATION: XR HAND, RIGHT CLINICAL INFORMATION: M79.641 - Pain in right hand COMPARISON: July 27, 2025 TECHNIQUE: PA, lateral, and oblique views of the right hand. FINDINGS: K wires remain in place traversing a fracture fragment along the ulnar side of the neck of the third metacarpal extending to the radial articular surface at the head. There is been no change in position of the fragment with wires. Fracture line remains visible XR/XR hand RT min 3V IMPRESSION: Stable intra-articular fracture of third metacarpal head and neck post external fixation. Electronically signed by: Johnathan Mcgovern MD 08/03/2025 05:14 PM EDT
== END 2025-08-03 08:32 | disposition home or self-care (01) ==
LOC: HO.HOSX 08:31
PROVIDERS: Visit Provider Orthopaedic Surgery
DX: S62.392D Other fracture of third metacarpal bone, right hand, subsequent encounter for fracture with routine healing (principal); W26.8XXD Contact with other sharp object(s), not elsewhere classified, subsequent encounter
CPT/HCPCS: 73130; 99212

== ENCOUNTER → 2025-08-03 15:23 | Outpatient (AMB) | payer MEDICAID, SELFPAY ==
--- NOTE | 2025-08-03 15:35 | MHC.OFFVIS ---
Vital Signs 08/03/25 15:40 Height 5 ft 7 in Weight 265 lb BMI 41.5 Intake Visit Reasons: PO RT 3rd MC I&D/ORIF 07/19/25 AR Intake Note: Octavio 40 yr old right hand dominant male who works at [employer], presents today for his P/O visit for his right hand 3rd MC I&D/ORIF from DOS:07/19/[address] Black. DRessing removed in office and xrays updated. States he is doing well. Allergies No Known Allergies (No Known Allergies*) Allergy (Verified 08/03/25 15:38) HPI HPI PO RT 3rd MC I&D/ORIF 07/19/25 AR: Details: Octavio is a 40 year old right hand dominant man who presents S/P right 3rd metacarpal ORIF, I&D of fracture & MCP joint laceration, and MCP joint radial sagittal band repair, DOS: 07/19/25. He punched a table at home, DOI: 07/14/25. He says he is doing well overall, with some pain as expected. He says this has improved somewhat. He works at [employer]. ON LICENSE OF [facility] Surgical History H/O wisdom tooth extraction Social History Housing: Apartment Alcohol intake: current Alcohol intake frequency: a few times a week Patient Tobacco Use Status: Current everyday Tobacco user Tobacco use type: Cigarette Cigarette Packs Per Day: 0.5 Cigarettes Per Day: 10 e-Cigarette/Vaping Use: Never Used Substance Use Type: Marijuana service: No Current occupational status: employed Current occupation: [employer] Cognitive needs: No Hearing needs: No Vision needs: No Review of Systems Const All systems reviewed & are unremarkable except as noted in HPI and below Physical Exam Vital Signs: BMI result Body Mass Index 41.5 Const General: no acute distress and alert Orientation/consciousness: patient oriented x3 Neuro General: patient oriented x3 Extrem Other: The patient was alert oriented and in no acute distress The incision & pin sites are healing well with no erythema drainage or evidence of infection. Sutures removed and Steri-Strips applied Sensation is intact Cap refill is brisk Radiographs: 3 views of the right hand were taken and viewed by me today in clinic. They show a right 3rd metacarpal head fracture with satisfactory fracture alignment and position of both K-wires. Psych Appearance: grossly normal Affect: normal affect Attitude: cooperative Assessment & Plan Assessment & Plan (1) Open fracture of third metacarpal bone of right hand: Code(s): S62.302B - Unspecified fracture of third metacarpal bone, right hand, initial encounter for open fracture Category: Medical (2) Laceration of right middle finger: Comment: Radial sagittal bad & MCP joint Code(s): S61.212A - Laceration without foreign body of right middle finger without damage to nail, initial encounter Category: Medical Plan Assessment & Plan: 1. Right 3rd metacarpal head fracture, open 2. Right middle finger MCP joint laceration of radial sagittal band S/P ORIF, I&D x2, & radial sagittal band repair DOS: 07/19/25 DOI: 07/14/25 The patient appears to be doing well post-operatively I educated him about the post-operative course I discussed being placed in a cast, he would prefer to be placed in a Clamdigger cast instead of a finger spica. He was placed in a clamdigger cast, to be worn for the next 2 weeks I explained the signs and symptoms of infection, if the patient develops any new or worsening erythema, drainage, pain, or warmth they should contact the clinic or attend the ED. I discussed activity modifications, he is to lift nothing heavier than a cellphone for the next 5 weeks. 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 He was given a note to remain out of work for the next 4 weeks Follow up in 2 weeks, with X-rays, 3V R hand, OOP. Anticipate placement in finger spica splint, middle ring & small, allowing for PIP joint ROM. Anticipate early OT referral. Anticipate K-wire removal at between 4 and 5 week postop Scribed for Shey Black MD by Finn Madrid, director medical, on 08/03/25 at 3:40 PM, EST. Orders: Orders XR hand RT min 3V Today M79.641 - Pain in right hand Coding Level of Care Code Global (21758) Diagnoses Open fracture of third metacarpal bone of right hand S62.302B Laceration of right middle finger S61.212A
[2025-08-03 15:40] VITALS: BMI 41.5
== END ==
PROVIDERS: PCP Internal Medicine; Visit Provider Orthopaedic Surgery
DX: S62.302B Unspecified fracture of third metacarpal bone, right hand, initial encounter for open fracture (principal); S61.212A Laceration without foreign body of right middle finger without damage to nail, initial encounter
CPT/HCPCS: 99024

== ENCOUNTER → 2025-08-03 15:26 | Outpatient (BNV) | payer MEDICAID, SELFPAY | PROVIDERS: Visit Provider Radiology Diagnostic Radiology | DX: M79.641 Pain in right hand (principal) | CPT/HCPCS: 73130 ==

== ENCOUNTER 2025-08-11 10:13 | Outpatient (REF) | payer MEDICAID, SELFPAY ==
--- NOTE | ~2025-08-11 | XR_ITS ---
CLINICAL HISTORY: M79.641 - Pain in right hand 3 views right hand Comparison: 08/03/2025 Findings: An oblique fracture involving distal metaphysis and articular margin of the 3rd metacarpal is healing in satisfactory alignment with 2 K-wires traversing the fracture site. No significant arthritic change No erosions No radiopaque foreign body Impression: Healing 3rd metacarpal ORIF in satisfactory alignment, unchanged in appearance from the previous exam This document has been electronically signed by: Rupert Carey MD on 08/12/2025 18:18:49
== END 2025-08-11 10:14 | disposition home or self-care (01) ==
LOC: HO.HOSX 10:13
PROVIDERS: Visit Provider Orthopaedic Surgery
DX: S62.392D Other fracture of third metacarpal bone, right hand, subsequent encounter for fracture with routine healing (principal); F17.210 Nicotine dependence, cigarettes, uncomplicated; X58.XXXD Exposure to other specified factors, subsequent encounter
CPT/HCPCS: 73130; 99212

== ENCOUNTER 2025-08-11 10:13 | Outpatient (AMB) | payer MEDICAID, SELFPAY ==
[2025-08-11 10:21] VITALS: BMI 41.5
--- NOTE | 2025-08-11 10:21 | MHC.OFFVIS ---
Vital Signs 08/11/25 10:21 Height 5 ft 7 in Weight 265 lb BMI 41.5 Intake Visit Reasons: PO RT 3rd MC I&D/ORIF 07/19/25 AR-cast change Intake Note: Octavio 40 yr old right hand dominant male who works at [employer], presents today for a cast change for his right hand 3rd MC I&D/ORIF from DOS:07/19/[address] Black. States he was having increase pain and states some of his padding fell out. Reports he removed his cast with very strong scissors at home and feels better with out cast on. Allergies No Known Allergies (No Known Allergies*) Allergy (Verified 08/11/25 10:23) HPI HPI PO RT 3rd MC I&D/ORIF 07/19/25 AR-cast change: Details: Octavio is a 40 year old right hand dominant man who returns S/P right 3rd metacarpal ORIF, I&D of fracture & MCP joint laceration, and MCP joint radial sagittal band repair, DOS: 07/19/25. He punched a table at home, DOI: 07/14/25. He says he was having increased pain with his cast on, and he was feeling sweaty & worried about his cast getting wet. He removed this at home with a pair of scissors last night. He feels better now that he removed it. He works at [employer]. He is a smoker. 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 The fracture was only minimally tender to palpation. Sensation is intact Cap refill is brisk Radiographs: 3 views of the right hand were taken and viewed by me today in clinic. They show a right 3rd metacarpal head fracture with satisfactory fracture alignment and position of both K-wires. Psych Appearance: grossly normal Affect: normal affect Attitude: cooperative Assessment & Plan Assessment & Plan (1) Open fracture of third metacarpal bone of right hand: Code(s): S62.302B - Unspecified fracture of third metacarpal bone, right hand, initial encounter for open fracture Category: Medical (2) Laceration of right middle finger: Comment: Radial sagittal bad & MCP joint Code(s): S61.212A - Laceration without foreign body of right middle finger without damage to nail, initial encounter Category: Medical Plan Assessment & Plan: 1. Right 3rd metacarpal head fracture, open 2. Right middle finger MCP joint laceration of radial sagittal band S/P ORIF, I&D x2, & radial sagittal band repair DOS: 07/19/25 DOI: 07/14/25 He removed his cast himself at home, and presents today for a cast change. The patient appears to be doing well post-operatively I educated him about the post-operative course He was fitted for a custom fiberglass splint, to be worn like a cast for the next week I explained the signs and symptoms of infection, if the patient develops any new or worsening erythema, drainage, pain, or warmth they should contact the clinic or attend the ED. I discussed activity modifications, he is to lift nothing heavier than a cellphone for the next 4 weeks. They should also avoid any heavy impact activities, falls, or sports activities for the next 6-8 weeks He will perform gentle ROM exercises at home while in his splint He should avoid any underwater activities at this time I explained the effects of smoking on wound/bone healing, and recommend they stop smoking prior to surgery & while healing. This includes vaping, Marijuana, and other Nicotine products including patches used to help quit. They expressed understanding. OT ordered to begin next week after K-wire removal He works at [employer] and does heavy lifting. He was given a note to remain out of work for the next 3 weeks. We anticipate that he will return to work on light duty, with a 2lb weight limit on 08/31/25. Anticipate return to full duty on 09/13/25 Follow up next week as scheduled next week, with X-rays, 3V R hand, OOP. Anticipate K-wire removal, meri taping and beginning range of motion exercises with OT. Scribed for Shey Black MD by Finn Madrid, medical anthropology director, on 08/11/25 at 11:05 AM, EST. Orders: Orders XR hand RT min 3V Today M79.641 - Pain in right hand OT Evaluation and Treatment Today S61.212A - Laceration without foreign body of right middle finger without damage to nail, initial encounter, S62.302B - Unspecified fracture of third metacarpal bone, right hand, initial encounter for open fracture Coding Level of Care Code Global (92876) Diagnoses Open fracture of third metacarpal bone of right hand S62.302B Laceration of right middle finger S61.212A
== END 2025-08-11 11:48 | disposition home or self-care (01) ==
LOC: HO.HOS 10:13
PROVIDERS: Visit Provider Orthopaedic Surgery
DX: S62.302B Unspecified fracture of third metacarpal bone, right hand, initial encounter for open fracture (principal); S61.212A Laceration without foreign body of right middle finger without damage to nail, initial encounter
CPT/HCPCS: 99024

== ENCOUNTER → 2025-08-11 10:37 | Outpatient (BNV) | payer MEDICAID, SELFPAY | PROVIDERS: Visit Provider Radiology Diagnostic Radiology | DX: M79.641 Pain in right hand (principal) | CPT/HCPCS: 73130 ==

== ENCOUNTER 2025-08-17 08:59 | Outpatient (REF) | payer MEDICAID, SELFPAY ==
--- NOTE | ~2025-08-17 | XR_ITS ---
EXAMINATION: XR HAND 3 OR MORE VIEWS RIGHT HISTORY: M79.641 - Pain in right hand COMPARISON: David is made with the prior examination dated 08/11/2025. FINDINGS: Three views of the right hand are submitted. Osseous mineralization is normal. Again seen is internal fixation of a fracture of the 3rd metacarpal with 2 K wires. Fracture line remains visible. The joint spaces are preserved. The soft tissues are unremarkable. XR/XR hand RT min 3V IMPRESSION: Internal fixation of a fracture of the 3rd metacarpal without change. Electronically signed by: Tera Crook MD 08/17/2025 09:24 AM EDT
== END 2025-08-17 09:00 | disposition home or self-care (01) ==
LOC: HO.HOSX 08:59
PROVIDERS: Visit Provider Orthopaedic Surgery
DX: S62.302D Unspecified fracture of third metacarpal bone, right hand, subsequent encounter for fracture with routine healing (principal); X58.XXXD Exposure to other specified factors, subsequent encounter
CPT/HCPCS: 73130; 99212

== ENCOUNTER 2025-08-17 09:08 | Outpatient (AMB) | payer MEDICAID, SELFPAY ==
[2025-08-17 09:27] VITALS: BMI 41.5
--- NOTE | 2025-08-17 09:27 | A.OFFVIS_ITS ---
Vital Signs 08/17/25 09:27 Height 5 ft 7 in Weight 265 lb BMI 41.5 Intake Visit Reasons: PO RT 3rd MC I&D/ORIF 07/19/25 AR Intake Note: Octavio 40 yr old right hand dominant male who works at [employer], presents today with his [employer], for his P/O visit for his right hand 3rd MC I&D/ORIF from DOS:07/19/[address] Black. At his last visit he was placed in a hydroelectric mechanic cast, he is aware to keep cast clean and dry and anticipation for removal of K-wires. He works at [employer] and does heavy lifting. He was given a note to remain out of work for the next 4 weeks. Splint removed in office and xrays updated in office. States his pain is currently a 12/28. Allergies No Known Allergies (No Known Allergies*) Allergy (Verified 08/11/25 10:23) HPI HPI PO RT 3rd MC I&D/ORIF 07/19/25 AR: Details: Octavio is a 40 year old right hand dominant man who returns S/P right 3rd metacarpal ORIF, I&D of fracture & MCP joint laceration, and MCP joint radial sagittal band repair, DOS: 07/19/25. He punched a table at home, DOI: 07/14/25. He was seen for a cast change on 08/11/25 after removing his at home. he felt increased pain and was worried the cast was getting sweaty. He says he is doing well, but is nervous about having his pins removed today He works at [employer]. He is a smoker. 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 K-wires removed today in clinic, which he tolerated well The fracture was only minimally tender to palpation. Sensation is intact Cap refill is brisk Radiographs: 3 views of the right hand were taken and viewed by me today in clinic. They show a right 3rd metacarpal head fracture with satisfactory fracture alignment and position of both K-wires. Some evidence of interval bony healing. Psych Appearance: grossly normal Affect: normal affect Attitude: cooperative Assessment & Plan Assessment & Plan (1) Open fracture of third metacarpal bone of right hand: Code(s): S62.302B - Unspecified fracture of third metacarpal bone, right hand, initial encounter for open fracture Category: Medical (2) Laceration of right middle finger: Comment: Radial sagittal bad & MCP joint Code(s): S61.212A - Laceration without foreign body of right middle finger without damage to nail, initial encounter Category: Medical Plan Assessment & Plan: 1. Right 3rd metacarpal head fracture, open 2. Right middle finger MCP joint laceration of radial sagittal band S/P ORIF, I&D x2, & radial sagittal band repair DOS: 07/19/25 DOI: 07/14/25 K-wires removed: 08/17/25 The patient appears to be doing well post-operatively I educated him about the post-operative course His middle & ring fingers were Omid-taped, to be worn for the next 3 weeks I explained the signs and symptoms of infection, if the patient develops any new or worsening erythema, drainage, pain, or warmth they should contact the clinic or attend the ED. I discussed activity modifications, he is to lift nothing heavier than a cellphone for the next 3 weeks. They should also avoid any heavy impact activities, falls, or sports activities for the next 5-7 weeks He will perform gentle ROM exercises at home. He is scheduled to begin OT hand therapy tomorrow, 08/18/25 He should avoid any underwater activities for the next 5 days I explained the effects of smoking on wound/bone healing, and recommend they stop smoking prior to surgery & while healing. This includes vaping, Marijuana, and other Nicotine products including patches used to help quit. They expressed understanding. He works at [employer] and does heavy lifting. He is currently out of work and is planned to return to work on light duty, with a 2lb weight limit on 08/31/25. Anticipate return to full duty on 09/13/25 Follow up 3 weeks for a ROM check, with X-rays, 3V R hand, OOP Scribed for Shey Black MD by Finn Madrid, medical office worker, on 08/17/25 at 10:10 AM, EST. Orders: Orders XR hand RT min 3V Today M79.641 - Pain in right hand Coding Level of Care Code Global (79187) Diagnoses Open fracture of third metacarpal bone of right hand S62.302B Laceration of right middle finger S61.212A
== END 2025-08-17 10:41 | disposition home or self-care (01) ==
LOC: HO.HOS 09:08
PROVIDERS: Visit Provider Orthopaedic Surgery
DX: S62.302B Unspecified fracture of third metacarpal bone, right hand, initial encounter for open fracture (principal); S61.212A Laceration without foreign body of right middle finger without damage to nail, initial encounter
CPT/HCPCS: 99024

== ENCOUNTER → 2025-08-17 09:12 | Outpatient (BNV) | payer MEDICAID, SELFPAY | PROVIDERS: Visit Provider Radiology Diagnostic Radiology | DX: S62.302D Unspecified fracture of third metacarpal bone, right hand, subsequent encounter for fracture with routine healing (principal) | CPT/HCPCS: 73130 ==

== ENCOUNTER 2025-09-08 10:24 | Outpatient (AMB) | payer MEDICAID, SELFPAY ==
[2025-09-08 10:58] VITALS: BMI 40.9
--- NOTE | 2025-09-08 10:58 | A.OFFVIS_ITS ---
Vital Signs 09/08/25 10:58 Height 5 ft 7 in Weight 261 lb BMI 40.9 Intake Visit Reasons: PO RT 3rd MC I&D/ORIF 07/19/25 AR w/xray ROM Intake Note: Octavio 40 yr old right hand dominant male who works at [employer], presents today with his [employer], for his P/O visit for his right hand 3rd MC I&D/ORIF from DOS:07/19/[address] Black. At his last visit with Dr Black, his middle & ring fingers were Omid-taped, to be worn for the next 3 weeks and attend O.T to help to regain ROM. Today patient states that while at O.T 2 weeks ago, he felt his hand flared up . He felt tightness, felt a pop and then states he has bruising to the area. Currently he is still limited on making a fist, has swelling on his fingers and is also having wrist pain. Allergies No Known Allergies (No Known Allergies*) Allergy (Verified 09/08/25 11:01) HPI HPI PO RT 3rd MC I&D/ORIF 07/19/25 AR w/xray ROM: Details: Octavio is a 40 year old right hand dominant man who returns S/P right 3rd metacarpal ORIF, I&D of fracture & MCP joint laceration, and MCP joint radial sagittal band repair, DOS: 07/19/25. He reports his middle & ring fingers were Omid-taped, to be worn for the next 3 weeks and attend O.T to help to regain ROM. He states that while at O.T 2 weeks ago, he felt his hand flared up . He felt tightness, felt a pop and then states he has bruising to the area. He says OT had him back off on his exercises until he saw me to make sure nothing was wrong. Currently he is still limited on making a fist, has swelling on his fingers and is also having wrist pain. He works at [employer]. He is a smoker. [facility] Surgical History H/O wisdom tooth extraction Social History Housing: Apartment Alcohol intake: current Alcohol intake frequency: a few times a week Patient Tobacco Use Status: Current everyday Tobacco user Tobacco use type: Cigarette Cigarette Packs Per Day: 0.5 Cigarettes Per Day: 10 e-Cigarette/Vaping Use: Never Used Substance Use Type: Marijuana service: No Current occupational status: employed Current occupation: [employer] Cognitive needs: No Hearing needs: No Vision needs: No Review of Systems Const All systems reviewed & are unremarkable except as noted in HPI and below Physical Exam Vital Signs: BMI result Body Mass Index 40.9 Const General: no acute distress and alert Orientation/consciousness: patient oriented x3 Neuro General: patient oriented x3 Extrem Other: The patient was alert oriented and in no acute distress Incisions are all well healed with no evidence of infection He still has quite a bit of right hand stiffness. He has stiffness in the index ring and small finger MCP joints, and quite a bit more stiffness in the middle finger MCP joint likely secondary to adhesions. We worked on active and passive range of motion exercises for more than 15 minutes in clinic today. We were able to get his index ring and small finger MCP joints to approximately 85 degrees of flexion passively. The middle finger MCP joint is really only flexing to maybe 45 or 50 degrees of flexion and I was able to maybe increase it from 45-50 degrees. He also has extrinsic tightness so he can bring the fingertips of the index middle and ring fingers to maybe 1-2 cm from his palm. Passively I can get them to about 1 cm but actively probably only about 2 cm from his palm. He also has some mild stiffness when trying to bring them into extension but he can just about get his hand flat on the table after working on it in clinic. He could actively bring all of his fingers to probably within 10 degrees from full extension so I am not worried about any kind of extensor tendon problems. He can also hold him against resistance Also some general tightness even with active abduction and adduction Sensation is intact Cap refill is brisk Radiographs: 3 views of the right hand were taken and viewed by me today in clinic. They show a right 3rd metacarpal head fracture that is now well healed and then satisfactory alignment.. Psych Appearance: grossly normal Affect: normal affect Attitude: cooperative Office Procedures AMB Fracture Care Details: No fracture, manual therapy if more than 15 minutes [id number] Fracture Billing Code: Fracture Billing Code Assessment & Plan Assessment & Plan (1) Open fracture of third metacarpal bone of right hand: Code(s): S62.302B - Unspecified fracture of third metacarpal bone, right hand, initial encounter for open fracture Category: Medical (2) Laceration of right middle finger: Comment: Radial sagittal bad & MCP joint Code(s): S61.212A - Laceration without foreign body of right middle finger without damage to nail, initial encounter Category: Medical Plan 1. Right 3rd metacarpal head fracture, open 2. Right middle finger MCP joint laceration of radial sagittal band S/P ORIF, I&D x2, & radial sagittal band repair DOS: 07/19/25 DOI: 07/14/25 K-wires removed: 08/17/25 These have all gone on to heal well 3. Right hand stiffness This is now his main problem The patient appears to have healed well postoperatively, but he still has quite a bit of hand stiffness. I think this flare-up may have been release of some adhesions around the 3rd MCP joint. Again the fracture is well healed now and he is not going to hurt the bone by working on range of motion.. I educated him about the post-operative course I want him to go ahead and start working with enthusiasm and with OT on these range of motion exercises, both active and passive. He will perform gentle ROM exercises at home every hour while awake. He will also need to work on some strengthening in flexion as he gets closer to making a tight fist. 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 I am going to keep him out of work for the next 4 weeks while he works on range of motion Follow up 4 weeks for a ROM check. No radiographs are necessary at this time I am hoping that we can get him back to work in some capacity at next visit. Scribed for Shey Black MD by Jenni Curiel medical staff assistant, on 09/08/25 at 11:48 AM, EST. Orders: Orders XR hand RT min 3V Today M79.641 - Pain in right hand Coding Level of Care Code Est Pt Level 4 (49085) Diagnoses Open fracture of third metacarpal bone of right hand S62.302B Laceration of right middle finger S61.212A CPT Codes Fracture Care - Fracture Billing Code: Fracture Billing Code ([id number])
== END 2025-09-08 11:48 | disposition home or self-care (01) ==
LOC: HO.HOS 10:25
PROVIDERS: Visit Provider Orthopaedic Surgery
DX: S62.302B Unspecified fracture of third metacarpal bone, right hand, initial encounter for open fracture (principal); S61.212A Laceration without foreign body of right middle finger without damage to nail, initial encounter; M25.641 Stiffness of right hand, not elsewhere classified
CPT/HCPCS: 99024

== ENCOUNTER → 2025-09-08 10:27 | Outpatient (BNV) | payer MEDICAID, SELFPAY | PROVIDERS: Visit Provider Radiology Diagnostic Radiology | DX: M79.641 Pain in right hand (principal) | CPT/HCPCS: 73130 ==

== ENCOUNTER 2025-09-08 10:45 | Outpatient (REF) | payer MEDICAID, SELFPAY ==
--- NOTE | ~2025-09-08 | XR_ITS ---
EXAMINATION: XR HAND 3 OR MORE VIEWS RIGHT HISTORY: M79.641 - Pain in right hand COMPARISON: Comparison is made with the prior examination dated 08/17/2025. FINDINGS: Three views of the right hand are submitted. The bones are osteopenic. There has been removal of the previously seen K wires transfixing the previously described fracture of the 3rd metacarpal. Fracture appears healed. The joint spaces are preserved. The soft tissues are unremarkable. XR/XR hand RT min 3V IMPRESSION: Healed fracture of the 3rd metacarpal. Electronically signed by: Tera Crook MD 09/08/2025 11:16 AM EST
== END 2025-09-08 10:46 | disposition home or self-care (01) ==
LOC: HO.HOSX 10:45
PROVIDERS: Visit Provider Orthopaedic Surgery
DX: S62.302B Unspecified fracture of third metacarpal bone, right hand, initial encounter for open fracture (principal); Z98.890 Other specified postprocedural states; X58.XXXD Exposure to other specified factors, subsequent encounter
CPT/HCPCS: 73130; 97140; 99212

== ENCOUNTER 2025-09-13 14:29 | Outpatient (RCR) | payer MEDICAID, SELFPAY ==
--- NOTE | 2025-08-20 08:30 | MHC.OT.EP ---
[facility] Office [address] [facility] [phone] F: [phone] F: [phone] Occupational Therapy Plan of Care Patient Name: Octavio Pringle Date of Evaluation: 08/18/25 Diagnosis: S/P 3rd MCP CRPP, I & D OF FRACTURE, MCP JOINT LACERATION, MCP JOINT RADIAL SAGITTAL BAND REPAIR Pain Location: R MF DORSAL MCP 2/10 AT REST 5/10 WITH USE STIFF, ACHY, THROBBING Pain Score: 2-5/10 Pain Scale Used: Numeric (0 - 10) Aggravating Factors: GENERAL USE OF R HAND Alleviating Factors: NOT USING HEAT/ICE, NOT TAKING PAIN MEDICATION Assessment: MR PRINGLE IS FOUR WEEKS S/P S/P 3rd MCP CRPP, I&D OF FRACTURE, MCP JOINT LACERATION, MCP JOINT RADIAL SAGITTAL BAND REPAIR WITH DR RAHMAN (DOS 07/19/25). HE HAD HIS F/U APPOINTMENT YESTERDAY WITH DR RAHMAN IN WHICH THE PINS WERE REMOVED AND HE HAS A 2 LB LIFTING RESTRICTION. 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 MOST ADLs AND IADLs ARE DIFFICULT FOR HIM TO PERFORM WITH HIS DOMINANT R HAND, NOW USING COMPENSATORY STRATEGIES WITH PRIMARILY HIS L HAND. AN 89% LIMITATION IS REPORTED PER THE QUICK DASH ASSESSMENT. ONGOING SKILLED OT WILL BE WARRANTED TO ADDRESS ROM, SCAR MOBILIZATION, COORDINATION, EDEMA, STRENGTH, ORTHOSIS NEEDS, IADL RETRAINING AND Pt EDUCATION. Frequency and Duration: The patient will be seen 2-3X/WEEK FOR 8 WEEKS Short Term Goals: IND HEP IND USE OF HEAT/ ICE MODALITIES IND MAYA TAPING AND/ OR ORTHOSIS USE ACHIEVE <2 CM TIP TO DPC INCORPORATE RUE INTO DAILY ADLs >75% OF TIME WITH <3/10 PAIN Greenkeeper Goals: IND SCAR MOBILIZATION AND EDEMA MANAGEMENT STRATEGIES ACHIEVE <15/60 OF MP AROM OF 3RD DIGIT R GROSS GRASP >60 POUNDS TOLERATE LIFTING >20 POUNDS FLOOR TO WAIST WITH <3/10 PAIN Treatment Plan: Therapeutic Exercise Therapeutic Activity Home Exercise Program Splinting Neuro Re-ed Patient Education Desensitization/Sensory Re-ed Edema Control ADL Training Ultrasound NMES Iontophoresis Paraffin Fluidotherapy MHP Cold Packs Joint Mobilization Soft Tissue Mobilization Kinesiotaping Other (see comments) Electronically Signed By: RAIMUNDO CABA OTR/L Please Sign and return to therapist. Thank you once again for your referral.
--- NOTE | 2025-09-09 15:43 | MHC.OT.OP ---
[facility] Office [address] [facility] [phone] F: [phone] F: [phone] Occupational Therapy Progress Note Patient Name: Octavio Pringle Diagnosis: S/P 3rd MCP CRPP, I & D OF FRACTURE, MCP JOINT LACERATION, MCP JOINT RADIAL SAGITTAL BAND REPAIR Date of Surgery: 07/19/25 Date of Evaluation: 08/18/25 Treatments to Date: 8 Cancellations to Date: 0 No Shows to Date: 0 Subjective: Pt had a follow up w/ the MD yesterday who cleared him for increased ROM therex and ROM exercises Pain Score: 7 Pain Location: R MF Objective Measures: INTACT PER SEMMES AKANKSHA Status: Progressing Assessment: PT IS 7 WEEKS POST OP; HE HAD A FOLLOW UP W/ THE MD YESTERDAY WHO CLEARED HIM FOR INCREASED ROM AND PROM. PT HAS BEEN COMPLIANT W/ ATTENDING OT AND HIS HEP. 3 TREATMENTS AGO HE REPORTED A PAINFUL POPPING IN HIS AFFECTED DIGIT AND WE EASED OFF OF AGGRESSIVE ROM AND FOCUSED ON GENTLE ROM UNTIL HIS FOLLOW UP W/THE MD. OVER THE NEXT TWO SESSIONS EDEMA DECREASED AND PAIN FREE ROM INCREASED. POST TX TODAY PT WAS ABLE TO MAKE A LIGHT FIST AND GET THE DISTAL TIPS OF HIS DIGITS TO HIS PALM W/ MINIMAL EFFORT. PT DOES HAVE SWELLING AND WAS GIVEN COBAN TO WRAP HIS HAND/WRIST (NOT HIS DIGITS) AT NIGHT TO DECREASE THE SWELLING. PT WOULD CONITNUE TO BENEFIT FROM SKILLED OT THERAPY TO FOCUS ON INCREASING ROM, STRENGTH, AND THE FUCNTIONAL USE OF HIS L HAND. Short Term Goals: IND HEP IND USE OF HEAT/ ICE MODALITIES IND MAYA TAPING AND/ OR ORTHOSIS USE ACHIEVE <2 CM TIP TO DPC INCORPORATE RUE INTO DAILY ADLs >75% OF TIME WITH <3/10 PAIN Prison Goals: IND SCAR MOBILIZATION AND EDEMA MANAGEMENT STRATEGIES ACHIEVE <15/60 OF MP AROM OF 3RD DIGIT R GROSS GRASP >60 POUNDS TOLERATE LIFTING >20 POUNDS FLOOR TO WAIST WITH <3/10 PAIN Frequency and Duration: The patient will be seen 2XS A WEEK FOR 4 WEEKS Treatment Plan: Therapeutic Exercise Therapeutic Activity Home Exercise Program Splinting Neuro Re-ed Patient Education Desensitization/Sensory Re-ed Edema Control Ultrasound NMES Fluidotherapy MHP Cold Packs Joint Mobilization Soft Tissue Mobilization Kinesiotaping Electronically Signed By: MINERVA MAXWELL OTR/L Reviewed/agree with student documentation: N/A Therapist:
== END 2025-09-30 15:55 | disposition home or self-care (01) ==
LOC: HO.OT 14:29
PROVIDERS: PCP Internal Medicine; Visit Provider Orthopaedic Surgery
DX: S61.212D Laceration without foreign body of right middle finger without damage to nail, subsequent encounter (principal); S62.302D Unspecified fracture of third metacarpal bone, right hand, subsequent encounter for fracture with routine healing
CPT/HCPCS: 97110; 97140; 97166; 97167; 97760

== ENCOUNTER 2025-10-06 11:03 | Outpatient (REF) | payer MEDICAID, SELFPAY ==
--- NOTE | ~2025-10-06 | XR_ITS ---
EXAMINATION: XR HAND 3 OR MORE VIEWS RIGHT HISTORY: M79.641 - Pain in right hand COMPARISON: Comparison is made with the prior examination dated 09/08/2025. FINDINGS: Four views of the right hand are submitted. Osseous mineralization is normal. Again seen is an old healed fracture of the 3rd metacarpal. There is no acute fracture or dislocation. The joint spaces are preserved. The soft tissues are unremarkable. XR/XR hand RT min 3V IMPRESSION: No acute abnormality. Electronically signed by: Tera Crook MD 10/06/2025 01:11 PM EST
--- OUTSIDE RECORDS SUMMARY | 2025-10-06 14:37 | XMS_ITS | Clinical Summary ---
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 Name Role Phone Unavailable Primary Care Provider Unavailabl e Encounters Date Type Department Care Team Description 09/22/2025 Population Health Risk Score [facility] Care [facility] ([facility]) Department [address] [facility] [address] [place] [id number] Provider, Population Health Generic from Last 3 Months Social History Tobacco Use Types Packs/Day Years Used Date Smoking Tobacco: Never Assessed Sex and Gender Information Value Date Recorded Sex Assigned at Not on file Legal Sex Male 2:27 AM EDT Gender Identity Not on file Sexual Orientation Not on file Plan of Treatment Health Maintenance Due Date Last Done Comments Depression Screening 1985 HIV Screening 1985 Lipid Panel 1985 SDOH Screening 1985 Disability Screening 1985 Alcohol/Substance Use Screening 1997 Tobacco Screening 1997 Family Planning (PISQ) 2000 HPV Vaccines (1 - Male 3-dos e series) 2000 Hepatitis C Screening 2003 DTaP/Tdap/Td Vaccines (1 - Tdap) 2004 Hepatitis B Vaccines (1 of 3 - 19+ 3-dose series) 2004 COVID-19 Vaccine (1 - 2024-2 6 season) 2025 Influenza Vaccine (#1) 2025 Zoster Vaccines (1 of 2) 2035 RSV Patients and Pa tients Aged 60 years or older (1 - 1-dose 75+ series) 2060 HIB Vaccines Aged Out No longer eligi ble based on patient's age to complete this topic Hepatitis A Vaccines Aged Out No long er eligible based on patient's age to complete this topic IPV Vaccines Aged Out No longer eligi ble based on patient's age to complete this topic Meningococcal B Vaccine Aged Out No l onger eligible based on patient's age to complete this topic Meningococcal Vaccine Aged Out No tc gabino eligible based on patient's age to complete this topic Pneumococcal Vaccine: Pediat rics (0 to 5 Years) and At-Risk Patients (6 to 49) Years Aged Out No longer eligible b ased on patient's age to complete this topic RSV under 20 months Aged Out No longe r eligible based on patient's age to complete this topic Rotavirus Vaccines Aged Out No longer eligible based on patient's age to complete this topic
== END 2025-10-06 11:04 | disposition home or self-care (01) ==
LOC: HO.HOSX 11:03
DX: S62.302D Unspecified fracture of third metacarpal bone, right hand, subsequent encounter for fracture with routine healing (principal); S61.212D Laceration without foreign body of right middle finger without damage to nail, subsequent encounter; X58.XXXD Exposure to other specified factors, subsequent encounter
CPT/HCPCS: 73130

== ENCOUNTER 2025-10-06 12:58 | Outpatient (AMB) | payer MEDICAID, SELFPAY ==
--- NOTE | 2025-10-06 13:09 | MHC.OFFVIS ---
Vital Signs 10/06/25 13:10 Height 5 ft 7 in Weight 261 lb BMI 40.9 Intake Visit Reasons: PO RT 3rd MC I&D/ORIF 07/19/25 AR w/xray ROM Intake Note: Octavio 40 yr old right hand dominant male who works at [employer], presents today with his [place], for his P/O visit for his right hand 3rd MC I&D/ORIF from DOS:07/19/[address] lBack. At his last visit he was advise to work on his ROM and stiffness. Today patient states he continues to be limited, has weakness and is feeling depress due to this keeping him from his daily activities. Allergies No Known Allergies (No Known Allergies*) Allergy (Verified 10/06/25 13:11) HPI HPI PO RT 3rd MC I&D/ORIF 07/19/25 AR w/xray ROM: Details: Octavio is a 40 year old right hand dominant man who returns S/P right 3rd metacarpal ORIF, I&D of fracture & MCP joint laceration, and MCP joint radial sagittal band repair, DOS: 07/19/25. He complains of ongoing stiffness & weakness in his hand, and is feeling upset by this. Currently he is still limited on making a fist, has swelling on his fingers and is also having wrist pain. He was attending OT hand therapy but was discharged on 09/30/25 for visit non-compliance. He works at [employer]. He is a smoker. He says he has been depressed the last few weeks for multiple reasons, including his ongoing limitations and some family issues. he says he no-showed his OT appointments due to being depressed. [facility] Surgical History H/O wisdom tooth extraction Social History Housing: Apartment Alcohol intake: current Alcohol intake frequency: a few times a week Patient Tobacco Use Status: Current everyday Tobacco user Tobacco use type: Cigarette Cigarette Packs Per Day: 0.5 Cigarettes Per Day: 10 e-Cigarette/Vaping Use: Never Used Substance Use Type: Marijuana service: No Current occupational status: employed Current occupation: [employer] Cognitive needs: No Hearing needs: No Vision needs: No Review of Systems Const All systems reviewed & are unremarkable except as noted in HPI and below Physical Exam Vital Signs: BMI result Body Mass Index 40.9 Const General: no acute distress and alert Orientation/consciousness: patient oriented x3 Neuro General: patient oriented x3 Extrem Other: Evaluation of Right Upper Extremity: The patient is alert, oriented, and in no acute distress Neuro: Median, Ulnar, Radial nerves motor and sensory intact and sensation is normal to the tips of all digits Vascular: Cap refill brisk ROM: We worked on ROM exercises for 15+ minutes today in clinic He has full ROM of all his DIP & PIP joints Before leaving clinic he could bring his index, ring, and small finger MCP joints to ~90 degrees He could only actively bring his middle finger MCP joint to ~45 degrees Fracture site non-tender Psych Appearance: grossly normal Affect: normal affect Attitude: cooperative Assessment & Plan Assessment & Plan (1) Open fracture of third metacarpal bone of right hand: Code(s): S62.302B - Unspecified fracture of third metacarpal bone, right hand, initial encounter for open fracture Category: Medical (2) Laceration of right middle finger: Comment: Radial sagittal bad & MCP joint Code(s): S61.212A - Laceration without foreign body of right middle finger without damage to nail, initial encounter Category: Medical Plan Assessment & Plan: 1. Right 3rd metacarpal head fracture, open 2. Right middle finger MCP joint laceration of radial sagittal band S/P ORIF, I&D x2, & radial sagittal band repair DOS: 07/19/25 DOI: 07/14/25 K-wires removed: 08/17/25 These have all gone on to heal well 3. Right hand stiffness This is now his main problem The patient appears to have healed well postoperatively I discussed activity modification, he is able to use his hand for all daily activities We worked on ROM exercises for 15+ minutes today in clinic He will continue to work on ROM exercises at home, including strengthening He was discharged from OT hand therapy due to non-compliance. 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 He was given a note for work to return to light duty, with a 15lb weight limit for the next 4 weeks, effective 12/29/25 He will follow up in 5-6 weeks for a ROM check. Scribed for Shey Black MD by Finn Madrid, medical driver, on 10/06/25 at 1:15 PM, EST. Orders: Orders XR hand RT min 3V Today KAREN Laura M79.641 - Pain in right hand OT Evaluation and Treatment Today Shey Black MD S61.212A - Laceration without foreign body of right middle finger without damage to nail, initial encounter, S62.302B - Unspecified fracture of third metacarpal bone, right hand, initial encounter for open fracture Coding Level of Care Code Est Pt Level 3 (03703) Diagnoses Open fracture of third metacarpal bone of right hand S62.302B Laceration of right middle finger S61.212A
[2025-10-06 13:10] VITALS: BMI 40.9
== END 2025-10-06 13:35 | disposition home or self-care (01) ==
LOC: HO.HOS 12:59
PROVIDERS: Visit Provider Orthopaedic Surgery
DX: S62.302B Unspecified fracture of third metacarpal bone, right hand, initial encounter for open fracture (principal); S61.212A Laceration without foreign body of right middle finger without damage to nail, initial encounter
CPT/HCPCS: 99024

== ENCOUNTER → 2025-10-06 13:00 | Outpatient (BNV) | payer MEDICAID, SELFPAY | PROVIDERS: Visit Provider Radiology Diagnostic Radiology | DX: M79.641 Pain in right hand (principal) | CPT/HCPCS: 73130 ==